=== PATIENT | male | born 1930 | race Caucasian/White ===

== ENCOUNTER 2019-03-31 13:16 | Inpatient (IN) | payer MEDICARE, OTHER ==
[~2019-03-31] VITALS: Ht 185.4 cm; Wt 89.8 kg
--- NOTE | 2019-03-31 13:33 | NUR ---
Jay polanco in [facility] - 03/31/19 at 1347 by [email or web address] BABBITT SPINNER IS AT THE BEDSIDE FOR BLOOD DRAW.
--- NOTE | 2019-03-31 13:40 | NUR ---
PT BIB PA WITH A C/O AGGRESSIVE BEHAVIOR AT FACILITY. PT JUST ARRIVED TO THE FACILITY FROM [place]. PT IS CALM AND COOPERATIVE. PT WAS CONNECTED TO THE MONITOR AND CONTINUOUS PULSE OX.
--- NOTE | 2019-03-31 13:43 | NUR ---
TAX INTERN IS AT THE BEDSIDE FOR BLOOD DRAW.
--- NOTE | 2019-03-31 13:45 | NUR ---
PT IS NOT ABLE TO GIVE A URINE SAMPLE RIGHT NOW. URINAL IS AT THE BEDSIDE AND SITTER IS AT THE BEDSIDE. PT REC'D A SODA ( PER PT'S REQUEST).
[2019-03-31 13:54] LABS: BASOPHILS % (AUTO) 0.4 % (0.0-2.0); EOSINOPHILS % (AUTO) 0.8 % (0.0-6.0); HEMATOCRIT 36 % (39-51); LYMPHOCYTES # (AUTO) 1.9 /CMM (0.8-4.8); LYMPHOCYTES % (AUTO) 23.4 % (20.0-44.0); MEAN CORPUSCULAR HGB CONC 33 g/dl (31.0-36.0); MEAN CORPUSCULAR VOLUME 89 fL (80-96); MONOCYTES # (AUTO) 0.6 /CMM (0.1-1.30); MONOCYTES % (AUTO) 7.4 % (2.0-12.0); NEUTROPHILS # (AUTO) 5.4 /CMM (1.8-8.9); PLATELET COUNT (AUTO) 347 /CMM (150-450); RED BLOOD CELL COUNT(AUTO) 4.09 MIL/uL (4.5-6.0)
[2019-03-31 14:00] LABS: CARBON DIOXIDE 28 mmol/L (21-32); CHLORIDE 103 mmol/L (98-107); CREATININE 1.1 mg/dL (0.6-1.3); GLUCOSE 97 mg/dL (74-106); POTASSIUM 3.9 mmol/L (3.5-5.1); SODIUM SERUM 138 mmol/L (136-145); UREA NITROGEN, BLOOD 29 mg/dL (7-18)
[2019-03-31 14:07] LABS: ALANINE AMINOTRANSFERASE 27 U/L (12-78); ALBUMIN 3.1 g/dL (3.4-5.0); ALCOHOL, BLOOD < 3 mg/dL (0-0); ALKALINE PHOSPHATASE 100 U/L (46-116); ASPARTATE AMINOTRANSFERASE 24 U/L (15-37); BILIRUBIN,DIRECT 0.1 mg/dL (0.0-0.2); BILIRUBIN,TOTAL 0.4 mg/dL (0.2-1.0); TOTAL PROTEIN, SERUM 7.1 g/dL (6.4-8.2)
[2019-03-31 14:10] LABS: ACETAMINOPHEN 0 ug/ml (10-30); SALICYLATE 1.4 mg/dL (2.8-20.0)
--- NOTE | 2019-03-31 14:22 | NUR ---
PT IS AT THE BEDSIDE TRYING TO GIVE A URINE SAMPLE
[2019-03-31] MEDS ORDERED: IV NS 0.9% 1,000 ML BAG IV ONE (14:30)
--- NOTE | 2019-03-31 14:38 | NUR ---
20G IV STARTED IN LT WRIST.
--- NOTE | 2019-03-31 14:41 | NUR ---
PT IS WATCHING TV AND APPEARS TO BE RESTING COMFORTABLY. SITTER IS AT THE BEDSIDE.
--- NOTE | 2019-03-31 15:20 | NUR ---
PT IS RESTING COMFORTABLY AND WATCHING TV.
--- NOTE | 2019-03-31 15:59 | NUR ---
PT IS BEING PLACED ON A 5150 HOLD BY NAVDEEP RUELAS LCSW.
--- NOTE | 2019-03-31 16:00 | NUR ---
NURSING SUP GAVE GPS BED 217-B
[2019-03-31 16:17] LABS: APPEARANCE,URINE Clear (CLEAR); BILIRUBIN,URINE Negative (NEGATIVE); BLOOD, URINE Small Ery/uL (NEGATIVE); COLOR,URINE Dark (YELLOW); KETONES,URINE Negative (NEGATIVE); LEUKOCYTE ESTERASE ,URINE Negative (NEGATIVE); NITRITE, URINE Negative (NEGATIVE); PH,URINE 5.5 (5.0-8.0); PROTEIN,URINE Negative (NEGATIVE); UGLUCOSE Negative (NEGATIVE); UROBILINOGEN,URINE 0.2 EU/dL (0.2)
[2019-03-31] MEDS ORDERED: OLANZAPINE 10 MG VIAL IM ONE (16:30)
[2019-03-31 16:34] LABS: BACTERIA,URINE Rare /HPF (None Seen); SQUAMOUS EPITHELIAL CELL,UR Few /HPF (None Seen); WBC,URINE NONE SEEN /HPF (0-3)
--- NOTE | 2019-03-31 16:42 | NUR ---
REPORT TO GREGG CARDONA
--- NOTE | 2019-03-31 16:54 | NUR ---
PT IS GOING TO [facility] VIA . PT'S WALKER IS GOING WITH THE PT.
[2019-03-31] MEDS ORDERED: clonazePAM 0.5 MG TABLET PO PRN (17:30)
[2019-03-31] MEDS ORDERED: MAG HYDROX/AL HYDROX/SIMETH 30 ML UDC PO PRN (17:30)
[2019-03-31] MEDS ORDERED: BLOOD SUGAR DIAGNOSTIC 1 EACH STRIP IN ONE (17:30)
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
--- NOTE | 2019-03-31 19:05 | NUR ---
RN NOTES : RECEVIED NEW ADMIT PATIENT FROM DAY SHIFT FOR COMPLETE THE ADMISSION, WILL CONTINUITY WITH CARE.
[2019-03-31 19:15] VITALS: BP 115/78
--- NOTE | 2019-03-31 19:30 | NUR ---
OPENING NOTED :RECEIVED PATIENT RESTING IN BED, EASILY AGITATED,AGGRESSIVE PARANOID , UNCOOPERTIVE HYPERVERBAL. REDIRECTABLE. NEEDS FREQUENT REDIRECTIONS.. NO ACUTE DISTRESS NOTED AT THIS TIME. ENVIRONMENTAL SAFETY CHECKS DONE,ENCOURAGED PT. TO VERBALIZED ANY CONCERN TO STAFF, REFUSED SKIN ASSESSMENT , ENCOURAGED X3 STILL REFUSED ,WILL CONTINUE TO MONITOR Q15 MINS. FOR SAFETY & BEHAVIOR.
[2019-03-31 20:54] VITALS: BP 112/71
--- NOTE | 2019-04-01 05:55 | NUR ---
RN NOTES: PT. REFUSED FULL BODY SKIN ASSESSMENT AND PICTURES TO BE TAKEN, ENCOURAGED X3 , RISKS AND BENEFITS EXPLINED, STILL REFUSED .
--- NOTE | 2019-04-01 06:25 | NUR ---
GPS RN CLOSING NOTE: PATIENT IN BED COMFORTABLY,AND CONFUSED ,DISHELVED ,UNCOOPERTIVE ,EASILY AGITAED, PARANOID ,DURING IN SHIFT , NEEDS FREQUENTLY REDIRECTIONS ,NO ACUTE DISTRESS NOTED. DENIES PAIN OR DISCOMFORT ,DENIES SI/HI/AVH AT THIS TIME. SAFETY PRECAUTIONS IMPLEMENTED.ALL NEEDS ATTENDED AND ANTICIPATED, ENCOURGED FOR VERBALIZED ANY FEELING ,BED ALARM ON AND IN LOCKED POSITION. WILL CONTINUE TO MONITOR FOR PT'S SAFETY.
[2019-04-01 08:00] VITALS: BP 128/90
[2019-04-01 08:02] LABS: ALBUMIN 2.9 g/dL (3.4-5.0); BILIRUBIN,TOTAL 0.6 mg/dL (0.2-1.0); CALCIUM, SERUM 8.7 mg/dL (8.5-10.1); CREATININE 0.9 mg/dL (0.6-1.3); POTASSIUM 3.8 mmol/L (3.5-5.1); TOTAL PROTEIN, SERUM 6.8 g/dL (6.4-8.2)
--- NOTE | 2019-04-01 09:18 | NUR ---
GPS RN OPENING NOTE: RECEIVED PATIENT AMBULATING HALLWAY WITH WALKER. PATIENT IS AOX3. DENIES SI/HI AND VAH. PATIENT IS AGITATED AND ANGRY AND REQUESTED TO SPEAK TO MEDICAL LAB DIRECTOR HE FEELS HE IS IMPRISONED. PATIENT WAS REASSURED THAT HE WILL SPEAK TO SW TODAY. SAFETY PRECAUTIONS REVIEWED AND IMPLEMENTED. ENVIRONMENTAL CHECKS DONE. PATIENT REFUSED TO CHANGE INTO HOSPITAL GOWN. WILL CONTINUE TO MONITOR PT Q15 FOR MOOD, SAFETY, AND BEHAVIOR.
--- NOTE | 2019-04-01 10:56 | NUR ---
FACILITY CONTACT: JACINTO Alcantar, telecommunications administrator at [facility] Address: [address], [place] [address] who states pt is verbally and psychically aggressive and is an elopement risk. She states pt needs a locked SNF placement as he has been refusing care and treatment.
--- NOTE | 2019-04-01 11:00 | NUR ---
RN-CO: We ( with the med reconer) faxed the authorization to release information to [facility] to obtain medical information and list of medications. Awaiting for the reply.
--- NOTE | 2019-04-01 11:04 | NUR ---
CLASSIFYING MACHINE OPERATOR/MED RECON CALLED AND SPOKE WITH ABDELRAHMAN FROM [facility], AND STATED NO MEDICAL RECORD/DOCUMENTATION RECEIVE FROM THE PATIENT SON. CALLED AND SPOKE WITH SON AND OBTAINED INFO/NAME OF THE LAST FACILITY ADMISSION. "STAT" MASON FAXED TO [facility], SPOKE WITH DEREK OH FROM MEDICAL RECORD. AWAITING FOR RECORDS. CN MADE AWARE.
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
[2019-04-01] MEDS ORDERED: CHOL200076 PO (12:10)
[2019-04-01] MEDS ORDERED: FOLI0.4T2 PO (12:10)
--- NOTE | 2019-04-01 13:45 | NUR ---
INITIAL DISCHARGE PLAN: Pt will will need locked SNF placement as [facility] Address: [address], [place] [address] will not be accepting pt back due to his aggressive and combative behavior. Pts son Siva [phone] agrees with discharge plan. SW will help form a safe and proper discharge in collaboration with .
[2019-04-01] MEDS: ATORVASTATIN 10 MG TABLET PO SCH (15:08)
[2019-04-01] MEDS: CHOLECALCIFEROL 1,000 UNIT TABLET (VIT D3) PO SCH (15:09)
--- NOTE | 2019-04-01 15:53 | NUR ---
Group Note: Pt was encouraged to attend group therapy on 04/01/19 at 2pm discussing the topic of concerns around discharge plan but the pt refused and appeared to become agitated and aggressive. SW attempted to discuss his discharge plan with him but the pt stated that he does not know where he is going to be discharged to and did not appear to be aware of his situation. SW deemed the pt inappropriate for group due to his aggression.
[2019-04-01 16:00] VITALS: BP 141/71
[2019-04-01] MEDS: QUETIAPINE FUMARATE 25 MG TABLET PO SCH (17:20)
[2019-04-01 20:08] VITALS: BP 133/65
[2019-04-02 08:00] VITALS: BP 150/69
[2019-04-02] MEDS: QUETIAPINE FUMARATE 25 MG TABLET PO SCH ×3 (08:59→16:22)
[2019-04-02] MEDS: FOLIC ACID 1 MG TABLET PO SCH (08:59)
[2019-04-02] MEDS: CHOLECALCIFEROL 1,000 UNIT TABLET (VIT D3) PO SCH (09:00)
--- NOTE | 2019-04-02 14:43 | NUR ---
GPS RN NOTE: PATIENT IN ROOM LYING IN BED RESTING PATIENT IS AOX2. DENIES SI/HI AND VAH. PATIENT IS CALM AND COMPLIANT WITH AM MEDS.PATIENT AMBULATORY WITH WALKER SAFETY PRECAUTIONS REVIEWED AND IMPLEMENTED. ENVIRONMENTAL CHECKS DONE. WILL CONTINUE TO MONITOR PT Q15 FOR MOOD, SAFETY AND BEHAVIOR.
--- NOTE | 2019-04-02 15:52 | NUR ---
GROUP THERAPY: SW encouraged pt to attend group therapy on this present day discussing "discharge planning." Pt refused to attend stating "I don't need to share with other people where I'll be going. I'd rather stay in my room." SW provided intervention and discussed tretament plan and participation in group milieu. Pt stated that he might participate tomorrow.
[2019-04-02 16:00] VITALS: BP 150/72
[2019-04-02 20:27] VITALS: BP 121/55
[2019-04-02] MEDS: ATORVASTATIN 10 MG TABLET PO SCH (21:18)
[2019-04-03] MEDS: ACETAMINOPHEN 325 MG TABLET PO PRN (07:20)
--- NOTE | 2019-04-03 07:21 | NUR ---
GPS/RN-NOTES PATIENT REQUESTING FOR TYLENOL,C/O LOWER BACK PAIN .TYLENOL 650MG P.O. GIVEN PRN ORDER.
--- NOTE | 2019-04-03 08:20 | NUR ---
GPS/RN-NOTES PATIENT IN THE DAY ROOM WATCHING TV.DENIES ANY DISCOMFORT AT THIS TIME.
[2019-04-03] MEDS: FOLIC ACID 1 MG TABLET PO SCH (08:50)
[2019-04-03] MEDS: CHOLECALCIFEROL 1,000 UNIT TABLET (VIT D3) PO SCH (08:51)
[2019-04-03] MEDS: QUETIAPINE FUMARATE 25 MG TABLET PO SCH ×3 (08:51→16:47)
--- NOTE | 2019-04-03 09:06 | NUR ---
GPS/RN-NOTES PATIENT STRONGLY REFUSED SEROQUEL P.O DESPITE EXPLANATIONS RISK AND BENEFITS.STATED" I DON'T KNOW THAT MEDICATION". OFFERED X3.
--- NOTE | 2019-04-03 13:42 | NUR ---
GPS/RN Notes Pt. refused Seroquel PO medication. Pt. stated " I don't know that pill." Explained risks and benefits, offered 3 times and still refused.
[2019-04-03] MEDS: MAGNESIUM HYDROXIDE 30 ML UDC PO PRN (13:54)
--- NOTE | 2019-04-03 13:54 | NUR ---
GPS/RN-NOTES PATIENT C/O CONSTIPATION AND REQUESTING FOR MEDICATIONS TO HELP. MOM 30ML GIVEN PRN ORDER. WILL CONT. MONITORING FOR EFFECTIVENESS.
--- NOTE | 2019-04-03 15:34 | NUR ---
Group Note: Pt was encouraged to attend group therapy on 04/03/19 at 2pm discussing the topic of social supports but the pt refused and appeared to become agitated and aggressive. SW deemed the pt inappropriate for group due to his aggression.
[2019-04-03 16:00] VITALS: BP 154/85
--- NOTE | 2019-04-03 16:52 | NUR ---
GPS/RN-NOTES PATIENT CONTINUE REFUSING SEROQUEL P.O DESPITE EXPLANATIONS RISK AND BENEFITS.OFFERED X3
--- NOTE | 2019-04-03 17:44 | NUR ---
GPS/RN-NOTES PATIENT VERY ANGRY ABOUT HIS 14 DAY HOLD. CHARGE NURSE DID EXPLAINED THE HOLD WITH THE PATIENT BUT PATIENT SCREAMING AND YELLING STATED" I DID NOT HURT ANYONE, I NEED TO GO OUT". AUTOMOTIVE SALES EXECUTIVE REDIRECTED PATIENT AND OFFERED KLONOPIN AND AGREED. KLONOPIN 0.25MG P.O GIVEN PRN ORDER. WILL CONT. MONITORING FOR SAFETY AND BEHAVIOR.
--- NOTE | 2019-04-03 18:30 | NUR ---
GPS/RN-NOTES PATIENT IN THE DAY ROOM WATCHING TV,CALM NO ACUTE DISTRESS NOTED.
--- NOTE | 2019-04-03 19:44 | NUR ---
GPS/RN-NOTES PATIENT STATED THE MOM DID NOT WORK YET , ENDORSE TO NIGHT NURSE TO CONTINUE MONITORING.
[2019-04-03 20:30] VITALS: BP 113/82
[2019-04-03] MEDS: ATORVASTATIN 10 MG TABLET PO SCH (21:44)
[2019-04-04 08:00] VITALS: BP 128/69
[2019-04-04] MEDS: QUETIAPINE FUMARATE 25 MG TABLET PO SCH ×3 (08:47→17:18)
[2019-04-04] MEDS: CHOLECALCIFEROL 1,000 UNIT TABLET (VIT D3) PO SCH (08:47)
[2019-04-04] MEDS: FOLIC ACID 1 MG TABLET PO SCH (08:47)
--- NOTE | 2019-04-04 09:25 | NUR ---
FAMILY CONTACT: SW received a call from pts son Siva [phone] who asked if he can bring pts belongings to the unit from [facility]. SW stated that he should hold on to them until pt is discharged. Son agreed and SW also informed him that there is no discharge date as of now.
--- NOTE | 2019-04-04 12:45 | NUR ---
FAMILY CONTACT: JACINTO met with pts son Siva [phone] on this present day. Son discussed placement options with SW. Son states that pt needs locked placement as he is unable to care for him. SW stated that she will send SNF referrals next week and son agreed.
[2019-04-04 16:00] VITALS: BP 110/66
--- NOTE | 2019-04-04 19:30 | NUR ---
GPS RN OPENING NOTES : PATIENT RESTING IN ROOM . NO S/S OF ANY DISTRESS NOTED. BREATHING EVEN AND UNLABORED. NO S/S OF SOB. PT IS CONFUSED, FORGETFUL, RESERVED, PARANOID , DISHELVED ,GUARDED, & EASILY AGITATED, DISORGANIZED, REQUIRES FREQUENT REDIRECTION, DENIES SI/HI AT THIS TIME. WILL CONTINUE TO MONITOR Q15 MINS FOR SAFETY AND BEHAVIOR. CONTINUE TO MONITOR.
[2019-04-04 20:00] VITALS: BP 130/78
[2019-04-04] MEDS: ATORVASTATIN 10 MG TABLET PO SCH (21:24)
[2019-04-05 08:00] VITALS: BP 150/87
[2019-04-05] MEDS: FOLIC ACID 1 MG TABLET PO SCH (08:52)
[2019-04-05] MEDS: QUETIAPINE FUMARATE 25 MG TABLET PO SCH ×3 (08:52→17:12)
[2019-04-05] MEDS: CHOLECALCIFEROL 1,000 UNIT TABLET (VIT D3) PO SCH (08:52)
[2019-04-05 16:00] VITALS: BP 142/80
[2019-04-05 20:15] VITALS: BP 141/101
[2019-04-05] MEDS: ATORVASTATIN 10 MG TABLET PO SCH (21:06)
[2019-04-05] MEDS: TEMAZEPAM 7.5 MG CAPSULE PO PRN (21:34)
--- NOTE | 2019-04-05 21:34 | NUR ---
GPS-RN NOTE: INSOMNIA PATIENT C/O UNABLE TO SLEEP. ADMINISTERED RESTORIL 7.5MG PO ORDERED. WILL CONTINUE TO MONITOR FOR PATIENT'S SAFETY.
[2019-04-06] MEDS: ACETAMINOPHEN 325 MG TABLET PO PRN ×2 (05:39→20:08)
--- NOTE | 2019-04-06 05:40 | NUR ---
GPS-RN NOTE: C/O LOWER BACK PAIN PATIENT C/O LOWER BACK PAIN PS OF 5/10. ADMINISTERED ACETAMINOPHEN PER PT'S REQUEST. NON PHARMACOLOGICAL INTERVENTION PROVIDED. WILL CONTINUE TO ASSESS THE EFFECTIVENESS OF THE MEDICATION.
[2019-04-06 08:00] VITALS: BP 148/93
[2019-04-06] MEDS: FOLIC ACID 1 MG TABLET PO SCH (08:11)
[2019-04-06] MEDS: CHOLECALCIFEROL 1,000 UNIT TABLET (VIT D3) PO SCH (08:12)
[2019-04-06] MEDS: QUETIAPINE FUMARATE 25 MG TABLET PO SCH ×3 (08:12→16:45)
--- NOTE | 2019-04-06 10:01 | NUR ---
GPS RN OPENING NOTE: RECEIVED PATIENT AMBULATING HALLWAY WITH WALKER. PATIENT IS AOX2. DENIES SI/HI AND VAH. COMPLIANT WITH MEDICATION ADMINISTRATION AND PLAN OF CARE. SAFETY PRECAUTIONS OBSERVED. ENVIRONMENTAL CHECKS DONE. PT IS DELUSIONAL AND BELIEVES HE IS IN [facility] AND IS ASKING FOR DISCHARGE COORDINATOR. WILL CONTINUE TO MONITOR PT Q15 FOR MOOD, SAFETY, AND BEHAVIOR.
[2019-04-06 16:00] VITALS: BP 135/72
--- NOTE | 2019-04-06 20:08 | NUR ---
GPS-RN NOTE: PATIENT C/O LOWER BACK PAIN ON A PAIN SCALE OF 5/10. ADMINISTERED ACETAMINOPHEN 650MG PO ORDERED PER PT'S REQUEST. WILL CONTINUE TO MONITOR FOR THE EFFECTIVENESS OF THE MEDICATION.
[2019-04-06 20:32] VITALS: BP 150/78
[2019-04-06] MEDS: TEMAZEPAM 7.5 MG CAPSULE PO PRN (21:50)
--- NOTE | 2019-04-06 21:50 | NUR ---
GPS-RN NOTE: INSOMNIA PATIENT C/O UNABLE TO SLEEP. ADMINISTERED RESTORIL 7.5MG PO ORDERED. WILL CONTINUE TO MONITOR FOR PATIENT'S SAFETY.
[2019-04-06 22:03] VITALS: BP 135/85
[2019-04-06] MEDS ORDERED: ATORVASTATIN 10 MG TABLET ONE (22:17)
[2019-04-06] MEDS: ATORVASTATIN 10 MG TABLET PO SCH (22:19)
[2019-04-07 08:00] VITALS: BP 162/90
--- NOTE | 2019-04-07 08:24 | NUR ---
PC HEARING NOTIFICATION: JACINTO contacted pts son Siva [phone] and left a voicemail informing him pt will be having a PC hearing and Medication Capacity Hearing on this present day at 1530.
[2019-04-07] MEDS: CHOLECALCIFEROL 1,000 UNIT TABLET (VIT D3) PO SCH (08:35)
[2019-04-07] MEDS: FOLIC ACID 1 MG TABLET PO SCH (08:35)
[2019-04-07] MEDS: QUETIAPINE FUMARATE 25 MG TABLET PO SCH ×3 (08:35→16:26)
--- NOTE | 2019-04-07 11:39 | NUR ---
SNF REFERRAL: SW faxed SNF referral to Heladio health services coordinator at [facility] Address: [address], [place] [address] for review.
--- NOTE | 2019-04-07 11:56 | NUR ---
SNF REFERRAL: SW received a call from [employer] high school coordinator at [facility] Address: [address], [place] [address] stating pt has been accepted to the facility.
[2019-04-07 16:00] VITALS: BP 151/81
--- NOTE | 2019-04-07 19:21 | NUR ---
GPS RN OPENING NOTES : PATIENT RESTING IN ROOM. NO S/S OF ANY DISTRESS NOTED. BREATHING EVEN AND UNLABORED. NO S/S OF SOB. PT IS CONFUSED, FORGETFUL, RESERVED, PARANOID , DISHEVELED ,GUARDED, & EASILY AGITATED, DISORGANIZED, REQUIRES FREQUENT REDIRECTION, REFUSES CARE AT TIMES. DENIES SI/HI AT THIS TIME. SAFETY MEASURES MAINTAINED. WILL CONTINUE TO MONITOR Q15 MINS FOR SAFETY AND BEHAVIOR.
[2019-04-07 20:19] VITALS: BP 141/73
[2019-04-07] MEDS: ACETAMINOPHEN 325 MG TABLET PO PRN (20:47)
--- NOTE | 2019-04-07 20:49 | NUR ---
PRN TYLENOL GIVEN PATIENT VERBALIZED C/O GENERALIZED BODY ACHE 04/14, REQUESTED TO TAKE PAIN MEDICINE. PRN TYLENOL 650 MG PO GIVEN. WILL CONTINUE TO MONITOR.
[2019-04-07] MEDS: ATORVASTATIN 10 MG TABLET PO SCH (21:29)
[2019-04-08 08:00] VITALS: BP 162/87
[2019-04-08] MEDS: FOLIC ACID 1 MG TABLET PO SCH (08:22)
[2019-04-08] MEDS: CHOLECALCIFEROL 1,000 UNIT TABLET (VIT D3) PO SCH (08:22)
[2019-04-08] MEDS: QUETIAPINE FUMARATE 25 MG TABLET PO SCH ×2 (08:22→16:24)
--- NOTE | 2019-04-08 10:47 | NUR ---
COLLATERAL CONTACT: JACINTO received a call from Cecille social research assistant at [employer] ([phone]) requesting discharge information as she is collaborating with pts son for adjunct faculty for medical terminology placement. JACINTO informed her that pt will be discharged on Sunday04/11/19 to [facility]. JACINTO also provided JACINTO with clinical information and medications.
--- NOTE | 2019-04-08 10:57 | NUR ---
FAMILY CONTACT: JACINTO contacted pts son Siva [phone] to inform him SW received a call from JACINTO Oden at [facility] and also to inform him that pt has been accepted to [facility] and will be discharged on Sunday04/11/19. Son agreed with discharge plan.
[2019-04-08] MEDS: LISINOPRIL (20MG) 20 MG TABLET PO SCH (12:26)
--- NOTE | 2019-04-08 15:32 | NUR ---
GROUP NOTE: SW encouraged pt to participate in group therapy on this present day discussing, "reality-testing." Pt not appropriate for group therapy as pt has Dementia and is only alert to herself. Pt is confused, disorganized, and disoriented. Pt was laying in bed and was asking to use the phone to call his son. SW informed pt that he will be discharged on Sunday04/12/19 to a SNF and pt was excited.
[2019-04-08 16:00] VITALS: BP 141/61
[2019-04-08 20:25] VITALS: BP 117/65
[2019-04-08] MEDS: ACETAMINOPHEN 325 MG TABLET PO PRN (20:29)
[2019-04-08] MEDS: ATORVASTATIN 10 MG TABLET PO SCH (21:10)
[2019-04-09 08:00] VITALS: BP 134/67
[2019-04-09] MEDS: QUETIAPINE FUMARATE 25 MG TABLET PO SCH ×2 (08:35→16:01)
[2019-04-09] MEDS: FOLIC ACID 1 MG TABLET PO SCH (08:36)
[2019-04-09] MEDS: LISINOPRIL (20MG) 20 MG TABLET PO SCH (08:36)
[2019-04-09] MEDS: CHOLECALCIFEROL 1,000 UNIT TABLET (VIT D3) PO SCH (08:36)
[2019-04-09] MEDS: MAGNESIUM HYDROXIDE 30 ML UDC PO PRN (09:32)
[2019-04-09 16:00] VITALS: BP 111/64
[2019-04-09 20:00] VITALS: BP 123/64
[2019-04-09] MEDS: TEMAZEPAM 7.5 MG CAPSULE PO PRN (20:59)
[2019-04-09] MEDS: ATORVASTATIN 10 MG TABLET PO SCH (21:00)
[2019-04-10 08:00] VITALS: BP 136/68
[2019-04-10] MEDS: QUETIAPINE FUMARATE 25 MG TABLET PO SCH ×2 (08:07→16:37)
[2019-04-10] MEDS: FOLIC ACID 1 MG TABLET PO SCH (08:07)
[2019-04-10] MEDS: CHOLECALCIFEROL 1,000 UNIT TABLET (VIT D3) PO SCH (08:08)
[2019-04-10] MEDS: LISINOPRIL (20MG) 20 MG TABLET PO SCH (08:08)
[2019-04-10 16:00] VITALS: BP 118/54
[2019-04-10 20:40] VITALS: BP 142/80
[2019-04-10] MEDS: ATORVASTATIN 10 MG TABLET PO SCH (21:17)
[2019-04-11] MEDS: CHOLECALCIFEROL 1,000 UNIT TABLET (VIT D3) PO SCH (08:34)
[2019-04-11] MEDS: FOLIC ACID 1 MG TABLET PO SCH (08:34)
[2019-04-11] MEDS: LISINOPRIL (20MG) 20 MG TABLET PO SCH (08:34)
[2019-04-11] MEDS: QUETIAPINE FUMARATE 25 MG TABLET PO SCH (08:34)
--- NOTE | 2019-04-11 09:00 | NUR ---
RN NOTE- PT AMBULATORY W WALKER. IN HALLS AND ROOM. INTERACTIVE, MILDLY CONFUSED. DENIES SI HI AH VH. DC TODAY. SHOWERED AND CLOTHING CHANGE COMPLETED. PO INTAKE GOOD. MED COMPLIANT
[2019-04-11 09:19] VITALS: BP 158/87
--- NOTE | 2019-04-11 09:26 | NUR ---
DISCHARGE NOTE: Pt will be discharging at 12:30pm via [facility] [address] [place] [address] P: [phone]. Pts son Siva [phone] has been notified and agrees with discharge plan. Pts mood is euthymic with congruent affect. Pt denied visual/auditory hallucinations and denied suicidal/homicidal ideation. Pt will be under the care of Psychiatrist: Dr. Hansen Address: [address] [place] [address] and Linoleum Printer: Dr Benjamin Address: [address] [address] . The multidisciplinary exit care form was done, printed, signed, and given to the patient.
--- NOTE | 2019-04-11 09:28 | NUR ---
RN-CO: Paged Dr Hansen to obtain discharge order for his patient.Awaiting to call back.
--- NOTE | 2019-04-11 09:35 | NUR ---
RN-CO: DR SOLER CALLED BACK WITH ORDERS TO DISCONTINUE HOLD AND DISCHARGE PATIENT TO SNF, NOTED.
--- NOTE | 2019-04-11 12:45 | NUR ---
SLIDE FORMING MACHINE TENDER NOTE- PT DC TO [facility] AT THIS TIME VIA AMBULANCE. PT ALERT ORIENTED TO PERSON PLACE. CONFUSED. DENIES SI HI AH VH AT TIME OF DC. VALUABLES RETURNED TO PT AND SIGNED FOR. ID [id number] REMOVED. VS - BP-158/87. HR- 76, RR-19, T-98.0, SATURATION 99% RA. AFTERCARE AND ORDERS REVIEWED W AMBULANCE CREW AND PATIENT. ESCORTED OFF OF UNIT. SON XAVIER NOTIFIED OF TRANSFER AND REPORT CALLED TO ABRAHAM AT [facility].
== END 2019-04-11 12:45 | DRG 885 ==
LOC: ER 13:24 → GPS 16:56
PROVIDERS: ADMIT Psychiatry & Neurology Psychiatry; ATTEND Internal Medicine
DX: F29 Unspecified psychosis not due to a substance or known physiological condition (principal); I11.0 Hypertensive heart disease with heart failure; F03.91 Unspecified dementia, unspecified severity, with behavioral disturbance; I50.32 Chronic diastolic (congestive) heart failure; F41.9 Anxiety disorder, unspecified; E78.5 Hyperlipidemia, unspecified; D63.8 Anemia in other chronic diseases classified elsewhere; J44.9 Chronic obstructive pulmonary disease, unspecified
CPT/HCPCS: 36415; 73660-TC; 80048-TC; 80053-TC; 80061-TC; 80076-TC; 80305; 81000-TC; 82962-TC; 85025-TC; 87081-TC; G0480; J7030

== ENCOUNTER 2019-11-07 21:28 | Inpatient (IN) | payer MEDICARE, OTHER ==
[~2019-11-07] VITALS: Ht 185.4 cm; Wt 79.4 kg
[~2019-11-07 21:28] MED LIST: CHOL200076 PO; FOLI0.4T2 PO
--- NOTE | 2019-11-07 22:03 | NUR ---
GPS ADMISSION NOTE: ADMITTED THIS 88 Y/O MALE PATIENT. ADMIT FROM [facility] ER ORIGINALLY FROM [facility]. ADMITTED TO GPS 5150 HOLD , DTO AND GD , PER HOLD , PT. HAD INCREASED AGITATION AND AGGRESSIVE BEHAVIOR TOWARDS STAFF. UPON FACE TO FACE ASSESSMENT PATIENT IS A&O 1-2 , DISHEVELED, AGITATED, LOUD, CONFUSED, DISORIENTED. PT. UNABLE TO SIGN ADMISSION CONSENT PAPERS. BOTH MD AWARE AND NOTIFIED OF THE ADMISSION, BELONGINGS CONTRABAND WERE DONE ,PT. RIGHTS DISCUSS , PROVIDE THE PT. WITH HANDBOOK, AND MEDICATIONS GUIDE, ENVIRONMENTAL SAFETY CHECK DONE, ENCOURAGED PT. VERBALIZED ANY FEELINGS OR CONCERNS TO STAFF, ORIENT TO UNIT POLICY, NO ACUTE DISTRESS NOTED,VITAL SIGNS WNL ,DENIES ANY PAIN AT THIS TIME,WILL CONTINUE TO MONITOR FOR Q15 SAFETY AND BEHAVIOR.
[2019-11-07] MEDS ORDERED: LORAZEPAM 0.5 MG TABLET PO PRN (23:00)
[2019-11-07] MEDS ORDERED: MAG HYDROX/AL HYDROX/SIMETH 30 ML UDC PO PRN (23:00)
[2019-11-07] MEDS ORDERED: MAGNESIUM HYDROXIDE 30 ML UDC PO PRN (23:00)
[2019-11-07] MEDS ORDERED: BLOOD SUGAR DIAGNOSTIC 1 EACH STRIP IN ONE (23:00)
[2019-11-07] MEDS ORDERED: QUET25TA PO (23:06)
[2019-11-07] MEDS ORDERED: ATOR20TA PO (23:07)
[2019-11-07] MEDS ORDERED: GUAI-1189 PO (23:10)
[2019-11-07] MEDS ORDERED: DEXT15DR6 EACHEYE (23:12)
[2019-11-07] MEDS ORDERED: HYDR-500 PO (23:15)
[2019-11-07] MEDS ORDERED: CLOT15CR5 TP (23:21)
[2019-11-07] MEDS ORDERED: CLOT15CR27 TP (23:25)
[2019-11-07] MEDS ORDERED: CEPH-570 PO (23:31)
[2019-11-07] MEDS: TEMAZEPAM 7.5 MG CAPSULE PO PRN (23:48)
--- NOTE | 2019-11-07 23:52 | NUR ---
GPS RN NOTE: INSOMNIA PT. UNABLE TO SLEEP. ADMINISTERED RESTORIL 7.5 MG PO PRN ORDERED. WILL CONTINUE TO MONITOR FOR SAFETY AND BEHAVIOR.
[2019-11-08 00:33] VITALS: BP 148/74
[2019-11-08] MEDS ORDERED: GUAIFENESIN/D-METHORPHAN HB 5 ML UDC PO PRN (01:30)
[2019-11-08] MEDS ORDERED: POLYVINYL ALCOHOL 15 ML BOTTLE OP PRN (01:30)
[2019-11-08 06:44] LABS: BASOPHILS # (AUTO) 0.1 /CMM (0.0-0.2); BASOPHILS % (AUTO) 0.6 % (0.0-2.0); EOSINOPHILS % (AUTO) 12.9 % (0.0-6.0); HEMATOCRIT 31 % (39-51); HEMOGLOBIN 10.6 g/dL (13.5-17.5); LYMPHOCYTES # (AUTO) 1.7 /CMM (0.8-4.8); LYMPHOCYTES % (AUTO) 19.2 % (20.0-44.0); MEAN CORPUSCULAR HGB CONC 34 g/dl (31.0-36.0); MEAN CORPUSCULAR VOLUME 87 fL (80-96); MONOCYTES # (AUTO) 0.8 /CMM (0.1-1.30); MONOCYTES % (AUTO) 9.3 % (2.0-12.0); NEUTROPHILS # (AUTO) 5.1 /CMM (1.8-8.9); PLATELET COUNT (AUTO) 277 /CMM (150-450); WHITE BLOOD COUNT (AUTO) 8.7 K/uL (4.3-11.0)
[2019-11-08 07:09] LABS: CALCIUM, SERUM 8.6 mg/dL (8.5-10.1); POTASSIUM 3.7 mmol/L (3.5-5.1)
[2019-11-08] MEDS: CHOLECALCIFEROL 1,000 UNIT TABLET (VIT D3) PO SCH (08:39)
[2019-11-08] MEDS: CEPHALEXIN MONOHYDRATE 500 MG CAPSULE PO SCH ×4 (08:39→17:50)
[2019-11-08] MEDS: FOLIC ACID 1 MG TABLET PO SCH (08:39)
--- NOTE | 2019-11-08 08:39 | NUR ---
GIVEN ATIVAN FOR AGITATION.
[2019-11-08] MEDS: ACETAMINOPHEN 325 MG TABLET PO PRN (08:42)
[2019-11-08] MEDS ORDERED: CLOTRIMAZOLE/BETAMETASONE DIPROPIONATE 15 GM TUBE TP SCH (09:00)
[2019-11-08] MEDS ORDERED: PERMETHRIN 5% CRM 60 GM TUBE TP ONE (09:00)
[2019-11-08] MEDS ORDERED: CLOTRIMAZOLE 1% CREAM 24 GM TUBE TP SCH (09:00)
[2019-11-08] MEDS ORDERED: QUETIAPINE FUMARATE 25 MG TABLET PO SCH (09:00)
--- NOTE | 2019-11-08 09:00 | NUR ---
DR. DEL RIO IN AND GIVEN ORDERS.PT. AT THIS TIME REFUSING ELIMITE.
[2019-11-08] MEDS: LORAZEPAM 0.5 MG TABLET PO PRN (13:56)
--- NOTE | 2019-11-08 14:09 | NUR ---
GIVEN ATIVAN FOR AGITATION,DOSE INCREASED BY DR. LUNA.
[2019-11-08] MEDS ORDERED: OLANZAPINE 10 MG VIAL IM STA (14:37)
--- NOTE | 2019-11-08 14:50 | NUR ---
RN NOTE: EMERGENCY IM PT EXHIBITING INCREASED AGITATION, AGGRESSION AND ERRATIC BEHAVIOR. PT HITTING GLASS WINDOWS AT NURSES STATION. YELLING AND THREATENING STAFF. REMOVING CLOTHING. LAUGHING UNCONTROLLABLY. UNABLE TO BE REDIRECTED. DR. LUNA INFORMED. ORDER FOR ZYPREXA 5MG IM STAT. IM ADMINISTERED TO LEFT GLUTEUS WITHOUT COMPLICATION. WILL CONT TO MONITOR Q15MIN AND PRN FOR SAFETY AND BEHAVIOR.
--- NOTE | 2019-11-08 16:08 | NUR ---
RN NOTE: PT AWAKE AFTER IM ADMINISTRATION. NO RESPIRATORY DISTRESS NOTED.
--- NOTE | 2019-11-08 16:31 | NUR ---
PT. DOZING IN BED SKIN WARM AND DRY,VS STABLE.SIDE RAILS UP.AROUSABLE.
[2019-11-08] MEDS: OLANZAPINE 2.5 MG TABLET PO SCH ×2 (17:00→17:49)
--- NOTE | 2019-11-08 17:00 | NUR ---
REFUSING ELIMITE AT THIS TIME.
--- NOTE | 2019-11-08 18:01 | NUR ---
TOO DROWSY,JUNE. MEDS HELD.
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
--- NOTE | 2019-11-08 18:15 | NUR ---
COUGHING WITH DINNER,ALREADY ON MECH.SOFT DIET.PT PUTS TOO MUCH FOOD IN MOUTH AT ONE TIME.
[2019-11-08 20:13] VITALS: BP 144/83
[2019-11-08] MEDS: ATORVASTATIN 10 MG TABLET PO SCH (21:57)
[2019-11-08] MEDS: DIVALPROEX SODIUM 125 MG CAP.SPRINK PO SCH (21:57)
[2019-11-08] MEDS: TEMAZEPAM 7.5 MG CAPSULE PO PRN (22:32)
[2019-11-09 03:23] LABS: APPEARANCE,URINE CLEAR (CLEAR); BILIRUBIN,URINE NEGATIVE (NEGATIVE); BLOOD, URINE SMALL Ery/uL (NEGATIVE); COLOR,URINE YELLOW (YELLOW); KETONES,URINE NEGATIVE (NEGATIVE); LEUKOCYTE ESTERASE ,URINE NEGATIVE (NEGATIVE); NITRITE, URINE NEGATIVE (NEGATIVE); PROTEIN,URINE NEGATIVE (NEGATIVE); UGLUCOSE NEGATIVE (NEGATIVE); UROBILINOGEN,URINE 0.2 EU/dL (0.2)
--- NOTE | 2019-11-09 06:22 | NUR ---
GPS RN CLOSING NOTES: PT WAS MED COMPLIANT THIS SHIFT. ELIMITE CREAM APPLIED ALL OVER BODY DIRECTED. HAD RESTORIL 7.5MG 1 TAB PO PRN ORDERED FOR SLEEP. PT WOKE UP INTERMITTENTLY TO VOID USING URINAL. SLEPT FOR 7 HR THIS SHIFT. NO S/S OF DISTRESS. RESPIRATION EVEN AND UNLABORED WITH EQUAL RISE AND FALL OF THE SHIFT. PT IS CURRENTLY SLEEPING. WILL CONTINUE TO MONITOR AND ENDORSE TO AM SHIFT.
[2019-11-09 08:00] VITALS: BP 131/77
[2019-11-09] MEDS: FOLIC ACID 1 MG TABLET PO SCH ×2 (08:26→09:00)
[2019-11-09] MEDS: DIVALPROEX SODIUM 125 MG CAP.SPRINK PO SCH ×3 (08:26→21:38)
[2019-11-09] MEDS: CHOLECALCIFEROL 1,000 UNIT TABLET (VIT D3) PO SCH ×2 (08:26→09:00)
[2019-11-09] MEDS: CEPHALEXIN MONOHYDRATE 500 MG CAPSULE PO SCH ×4 (08:26→16:14)
[2019-11-09] MEDS: OLANZAPINE 2.5 MG TABLET PO SCH ×3 (08:28→16:14)
[2019-11-09] MEDS: CLOTRIMAZOLE/BETAMETASONE DIPROPIONATE 15 GM TUBE TP SCH (09:00)
[2019-11-09] MEDS: CLOTRIMAZOLE 1% 15 GM TUBE TP SCH ×2 (09:00→09:09)
[2019-11-09] MEDS: LORAZEPAM 0.5 MG TABLET PO PRN ×2 (11:30→16:14)
--- NOTE | 2019-11-09 11:45 | NUR ---
RN-CO: PATIENT REFUSED ALL AM MEDICATIONS.
--- NOTE | 2019-11-09 11:50 | NUR ---
RN-CO: PATIENT REFUSED ATIVAN , PATIENT WAS AGITATED AND SCREAMING AT THE STAFF.
--- NOTE | 2019-11-09 13:33 | NUR ---
RN-CO: PATIENT REFUSED TO TAKE A SHOWER, WHEN STAFF APPROACH HIM HE BECOMES AGITATED AND POSTURING. HE IS VERY COMBATIVE IF APPROACH FOR CARE. HE WAS SEEN BY DR LUNA.
[2019-11-09 16:00] VITALS: BP 134/74
--- NOTE | 2019-11-09 16:15 | NUR ---
RN-CO: PATIENT SHOWERED AT 1500, ATE SANDWICH, PUDDING, MILK AND JUICES. DEMANDING AND RESTLESS.
--- NOTE | 2019-11-09 16:16 | NUR ---
RN-CO: PATIENT IS RESTLESS, VERY DEMANDING HE REFUSED HIS PM MEDICATIONS INCLUDING ATIVAN 1 MG. HE IS VERY PARANOID.
--- NOTE | 2019-11-09 16:50 | NUR ---
RN-CO: PATIENT IS BANGING HIS CHAIR, SCREAMING, CURSING STAFF, REFUSED THE ATIVAN 1 MG PO. COMBATIVE TO STAFF. NOTIFIED DR LUNA AND SHE ORDERED ZYPREXA 5MG IM STAT, NOTED AND CARRIED OUT. WE WILL CONTINUE TO MONITOR Q 15 MIN FOR SAFETY OF THE PATIENT AND THE STAFF.
[2019-11-09] MEDS ORDERED: OLANZAPINE 10 MG VIAL IM STA (16:53)
[2019-11-09 20:42] VITALS: BP 114/57
[2019-11-09] MEDS: ATORVASTATIN 10 MG TABLET PO SCH (21:39)
[2019-11-09] MEDS: TEMAZEPAM 7.5 MG CAPSULE PO PRN (22:54)
--- NOTE | 2019-11-10 06:43 | NUR ---
GPS RN CLOSING NOTES: PT CONDITION REMAINS THE SAME THIS SHIFT. DISORGANIZED, DISORIENTED, CONFUSED, RESTLESS, MED COMPLIANT. HAD RESTORIL 7.5MG 1 TAB PO PRN ORDERED FOR SLEEP AT 2254 AND SLEPT FOR 6HR. WEEKLY SKIN ASSESSMENT DONE AND PICTURES TAKEN AND PLACED IN PT CHART. NO S/S OF DISTRESS AT THIS TIME. RESPIRATION EVEN AND UNLABORED WITH EQUAL RISE AND FALL OF THE CHEST ON ROOM AIR. ALL PATIENT CARE NEEDS WERE MET ANTICIPATED. WILL CONTINUE TO MONITOR AND ENDORSE TO AM SHIFT.
[2019-11-10 08:00] VITALS: BP 127/57
[2019-11-10] MEDS: OLANZAPINE 2.5 MG TABLET PO SCH ×2 (08:00→16:39)
[2019-11-10] MEDS: FOLIC ACID 1 MG TABLET PO SCH (08:00)
[2019-11-10] MEDS: CEPHALEXIN MONOHYDRATE 500 MG CAPSULE PO SCH ×3 (08:00→16:39)
[2019-11-10] MEDS: CHOLECALCIFEROL 1,000 UNIT TABLET (VIT D3) PO SCH (08:01)
[2019-11-10] MEDS: DIVALPROEX SODIUM 125 MG CAP.SPRINK PO SCH ×2 (08:01→21:31)
[2019-11-10] MEDS: CLOTRIMAZOLE 1% 15 GM TUBE TP SCH (08:05)
[2019-11-10] MEDS: CLOTRIMAZOLE/BETAMETASONE DIPROPIONATE 15 GM TUBE TP SCH (08:05)
--- NOTE | 2019-11-10 08:52 | NUR ---
RN NOTE- SPOKE W ALYSIA SHETTY ABOUT SKIN SCRAPE AND ELIMITE SECOND DOSE. STATED NOT NOW. MAYBE IN WEEK IF STILL SX. OR IVERMECTIM PO.
--- NOTE | 2019-11-10 09:00 | NUR ---
RN NOTE- PT DISORGANIZED AGITATED TRYING TO GET UP AND WALK WITHOUT ASSISTANCE, UNMANAGEABLE NOT DIRECTABLE. PO INTAKE FAIR, MED COMPLIANT
[2019-11-10] MEDS: LORAZEPAM 0.5 MG TABLET PO PRN (09:10)
--- NOTE | 2019-11-10 09:10 | NUR ---
RN NOTE- PT RESTLESS IRRITABLE TRYING TO GET OUT OF CHAIR AND UNMANAGEABLE. ATIVAN 1 MG GIVEN
--- NOTE | 2019-11-10 11:20 | NUR ---
SW Initial Discharge Plan: Patient currently resides at [facility] [address] [place] [address]; ([phone]). Patient's son Siva ([phone]) would want pt to return back. This technical writer and editor spoke with Jamia Bradshaw ([phone]) who stated that pt can return back upon discharge. laundromat worker will work with the MD, Treatment team, and family to help coordinate proper discharge.
--- NOTE | 2019-11-10 11:22 | NUR ---
SW Family Contact: This marketing copywriter spoke with Patient's son Siva ([phone]) and discussed treatment plan and discharge plan. Per son, he would want pt to return back to [facility].
--- NOTE | 2019-11-10 12:30 | NUR ---
RN NOTE- INCREASING AGITATION DIFFICULT REDIRECTION ATTEMPTING TO GET UP AND IRRITABLE YELLING. DR SOLER CALLED . ZYPREXA ZYDIS 5 MG X ONE DOSE ORDERED.
[2019-11-10] MEDS ORDERED: OLANZAPINE 5 MG/TAB.RAPDIS PO STA (12:52)
[2019-11-10 16:00] VITALS: BP 139/51
[2019-11-10 19:49] VITALS: BP 115/47
[2019-11-10] MEDS: ATORVASTATIN 10 MG TABLET PO SCH (21:31)
[2019-11-10] MEDS: TEMAZEPAM 7.5 MG CAPSULE PO PRN (22:27)
--- NOTE | 2019-11-10 22:45 | NUR ---
GPS RN NOTE: INSOMNIA ADMIN RESTORIL @ 8299, PER PT REQUEST TO HELP HIM SLEEP AT NIGHT, WILL CONTINUE TO MONITOR Q15MIN FOR SAFETY AND BEHAVIOR
[2019-11-11] MEDS: LORAZEPAM 0.5 MG TABLET PO PRN (00:57)
--- NOTE | 2019-11-11 01:02 | NUR ---
GPS RN NOTE: ANXIETY PT WAS RESTLESS, IRRITABLE, OFFERED ATIVAN PT ACCEPTED, TOOK THE MEDICATION, TOLERATED WELL. ADMIN ATIVAN PRN @ 0057. WILL CONTINUE TO MONITOR Q15MIN FOR SAFETY AND BEHAVIOR.
[2019-11-11 08:00] VITALS: BP 137/78
[2019-11-11] MEDS: DIVALPROEX SODIUM 125 MG CAP.SPRINK PO SCH ×2 (08:23→21:24)
[2019-11-11] MEDS: OLANZAPINE 2.5 MG TABLET PO SCH ×3 (08:23→21:23)
[2019-11-11] MEDS: CEPHALEXIN MONOHYDRATE 500 MG CAPSULE PO SCH ×3 (08:23→17:14)
[2019-11-11] MEDS: CHOLECALCIFEROL 1,000 UNIT TABLET (VIT D3) PO SCH (08:23)
[2019-11-11] MEDS: FOLIC ACID 1 MG TABLET PO SCH (08:25)
[2019-11-11] MEDS: CLOTRIMAZOLE 1% 15 GM TUBE TP SCH (08:37)
[2019-11-11] MEDS: CLOTRIMAZOLE/BETAMETASONE DIPROPIONATE 15 GM TUBE TP SCH (08:38)
--- NOTE | 2019-11-11 09:00 | NUR ---
RN NOTE- PT A BIT LESS AGITATED THIS MORNING DIDNT SLEEP LAST NOC SHIFT, PO INTAKE FAIR, MED COMPLIANT CONFUSED DISORGANIZED SKIN CARE COMPLETED TO BILATERAL FEET .TOLERATED WELL
--- NOTE | 2019-11-11 10:56 | NUR ---
WOUND CARE CONSULT: LIMITED ASSESSMENT DUE TO PT AGITATED AND COMBATIVE. PT NOTED TO HAVE SKIN CONDITION WITH GENERALIZED RASH. PT WAS TREATED WITH PERMETHRIN PER RN. WILL SEE PRN. CURRENT MICKY SCORE IS 15. RECOMMENDATIONS MADE FOR SKIN PROTECTION. DISCUSSED WITH NURSING STAFF. MD IN AGREEMENT WITH PLAN OF CARE.
[2019-11-11] MEDS: Z GUARD REMEDY 2 OZ OINT TP SCH (11:07)
[2019-11-11] MEDS ORDERED: OLANZAPINE 10 MG VIAL IM STA (12:25)
--- NOTE | 2019-11-11 12:25 | NUR ---
RN NOTE- PT W AGITATION AND AGGRESSIVENESS. ATIVAN OFFERED. PT REFUSED PO MEDS AND THREW TABLE IN DAY ROOM. DR SOLER CALLED . ORDERED ZYPREXA 2.5 MG TO BE INCREASED FROM BID TO QID. ALSO ORDERED ZYPREXA 5 MG IM X ONE DOSE NOW. COMPLIED
--- NOTE | 2019-11-11 13:05 | NUR ---
RN NOTE- PT IN BED RESTING QUIETLY. PULSE - 66, RR- 16
--- NOTE | 2019-11-11 13:53 | NUR ---
RN NOTE- PT QUIET, EASILY AWAKENED, PULSE 66, RR- 16.
[2019-11-11 16:00] VITALS: BP 140/101
[2019-11-11 19:42] VITALS: BP 115/61
[2019-11-11] MEDS: ATORVASTATIN 10 MG TABLET PO SCH (21:24)
[2019-11-12 08:00] VITALS: BP 152/78
[2019-11-12] MEDS: CLOTRIMAZOLE/BETAMETASONE DIPROPIONATE 15 GM TUBE TP SCH (09:00)
[2019-11-12] MEDS: CEPHALEXIN MONOHYDRATE 500 MG CAPSULE PO SCH ×3 (09:05→16:36)
[2019-11-12] MEDS: OLANZAPINE 2.5 MG TABLET PO SCH ×4 (09:05→20:53)
[2019-11-12] MEDS: DIVALPROEX SODIUM 125 MG CAP.SPRINK PO SCH ×2 (09:05→20:53)
[2019-11-12] MEDS: FOLIC ACID 1 MG TABLET PO SCH (09:05)
[2019-11-12] MEDS: CLOTRIMAZOLE 1% 15 GM TUBE TP SCH (09:06)
[2019-11-12] MEDS: CHOLECALCIFEROL 1,000 UNIT TABLET (VIT D3) PO SCH (09:06)
[2019-11-12] MEDS: Z GUARD REMEDY 2 OZ OINT TP SCH (09:07)
[2019-11-12] MEDS: LORAZEPAM 0.5 MG TABLET PO PRN ×2 (12:14→23:02)
[2019-11-12 16:00] VITALS: BP 119/66
[2019-11-12 20:35] VITALS: BP 147/92
[2019-11-12] MEDS: ATORVASTATIN 10 MG TABLET PO SCH (21:54)
[2019-11-12 22:00] VITALS: BP 132/82
--- NOTE | 2019-11-12 23:04 | NUR ---
RN NOTES: ANXIETY PT. IS RESTLESS, ANXIOUS SCREAMING YELLING IRRITABLE, PARANOID , NON DIRECTABLE ,OFFERED ATIVAN PT. ACCEPTED ATIVAN 1 MG PO PRN GIVEN. WILL CONTINUE TO MONITOR Q15MIN FOR SAFETY AND BEHAVIOR.
[2019-11-12] MEDS: Z GUARD REMEDY 2 OZ OINT TP PRN (23:11)
--- NOTE | 2019-11-13 01:00 | NUR ---
RN NOTE OFFERED RESTORIL SLEEPING MEDICATIONS , PT. REFUSED TO TAKE, PT. BEHAVIOR UNCOOPERATIVE, WILL CONTINUITY WITH CARE .
--- NOTE | 2019-11-13 06:31 | NUR ---
GPS RN NOTES: PT. RESTING IN HIS ROOM, CALM NOTED AT THIS TIME . NO S/S OF DISTRESS NOTED ,NO CHANGE OF CONDITION NOTED , ALL CARE NEEDS MET ANTICIPATED. WILL CONTINUE TO MONITOR FOR SAFETY BEHAVIOR, AND ENDORSE TO AM SHIFT FOR CONTINUITY OF CARE.
[2019-11-13] MEDS: Z GUARD REMEDY 2 OZ OINT TP PRN (06:54)
[2019-11-13 08:00] VITALS: BP 154/82
[2019-11-13] MEDS: CEPHALEXIN MONOHYDRATE 500 MG CAPSULE PO SCH ×3 (08:54→17:02)
[2019-11-13] MEDS: OLANZAPINE 2.5 MG TABLET PO SCH ×4 (08:54→21:15)
[2019-11-13] MEDS: CHOLECALCIFEROL 1,000 UNIT TABLET (VIT D3) PO SCH (08:54)
[2019-11-13] MEDS: Z GUARD REMEDY 2 OZ OINT TP SCH (08:54)
[2019-11-13] MEDS: DIVALPROEX SODIUM 125 MG CAP.SPRINK PO SCH ×2 (08:54→20:55)
[2019-11-13] MEDS: FOLIC ACID 1 MG TABLET PO SCH (08:54)
[2019-11-13] MEDS: CLOTRIMAZOLE 1% 15 GM TUBE TP SCH (09:02)
--- NOTE | 2019-11-13 10:03 | NUR ---
SW Note: This rewriter received a phone call from pt's SW from [employer] ([phone]) and this rewriter contacted back but was unavailable.
[2019-11-13 16:00] VITALS: BP 136/90
[2019-11-13] MEDS: LORAZEPAM 0.5 MG TABLET PO PRN (18:00)
--- NOTE | 2019-11-13 18:08 | NUR ---
GPS/RN-NOTES NOTED PATIENT WITH AGITATION BANGING HIS HERB-CHAIR TABLE SCREAMING AND YELLING AT THE STAFF. REDIRECTED AND OFFERED ATIVAN 1MG P.O PRN ORDER. WILL CONT. MONITORING FOR SAFETY AND BEHAVIOR.
--- NOTE | 2019-11-13 18:45 | NUR ---
GPS/RN-NOTES PATIENT SITTING IN THE CHAIR IN THE ROOM CALM AT THIS TIME.NO ACUTE DISTRESS NOTED. ENDORSED TO NIGHT NURSE FOR CONT. MONITORING FOR SAFETY ,BEHAVIOR AND CONTINUITY OF CARE.
[2019-11-13 19:48] VITALS: BP 135/71
[2019-11-13 19:52] VITALS: BP 135/71
[2019-11-13] MEDS: ATORVASTATIN 10 MG TABLET PO SCH (21:31)
--- NOTE | 2019-11-13 22:30 | NUR ---
GPS RN NOTE PATIENT IS AWAKE & SITTING IN HERB CHAIR, ATTEMPTS TO CLIMB OUT OF HIS BED, HIGH FALL RISK DUE TO VERY UNSTEADY GAIT, PATIENT IS UNCOOPERATIVE, EASILY AGITATED, REFUSES CARE AT TIMES, CONFUSED, HYPERVERBAL, ANXIOUS, RESTLESS, NEEDS FREQUENT REDIRECTIONS, ON CLOSE SUPERVISION FOR SAFETY. WILL CONTINUE TO MONITOR.
[2019-11-13] MEDS: TEMAZEPAM 7.5 MG CAPSULE PO PRN (23:04)
--- NOTE | 2019-11-13 23:05 | NUR ---
GPS RN NOTE: INSOMNIA PATIENT IS UNABLE TO SLEEP, RESTLESS AT TIMES. PRN RESTORIL 7.5 MG 1 CAP PO GIVEN ORDERED. WILL CONTINUE TO MONITOR FOR ANY CHANGES.
[2019-11-14] MEDS: Z GUARD REMEDY 2 OZ OINT TP PRN (03:08)
--- NOTE | 2019-11-14 05:19 | NUR ---
GPS RN NOTE PATIENT NOTED WITH SACRAL REDNESS, UNABLE TO COMPLETE SACRAL ASSESSMENT & TO TAKE THE PICTURE DUE TO PATIENT'S UNCOOPERATIVE BEHAVIOR, EASILY AGITATED, HYPERVERBAL, ANXIOUS, RESTLESS, REFUSED TO BE ON HIS SIDE LONG ENOUGH FOR SKIN ASSESSMENT. CLEANED SACRAL AREA MUCH POSSIBLE, Z GUARD APPLIED. NOTIFIED WITH NEW ORDER FOR WOUND CARE CONSULT. PATIENT IS ABLE TO TURN & REPOSITION IN BED INDEPENDENTLY. WILL CONTINUE TO MONITOR.
[2019-11-14 08:00] VITALS: BP 140/70
[2019-11-14] MEDS: FOLIC ACID 1 MG TABLET PO SCH (08:03)
[2019-11-14] MEDS: Z GUARD REMEDY 2 OZ OINT TP SCH (08:03)
[2019-11-14] MEDS: OLANZAPINE 2.5 MG TABLET PO SCH ×4 (08:03→21:47)
[2019-11-14] MEDS: CEPHALEXIN MONOHYDRATE 500 MG CAPSULE PO SCH ×3 (08:03→16:59)
[2019-11-14] MEDS: CHOLECALCIFEROL 1,000 UNIT TABLET (VIT D3) PO SCH (08:03)
[2019-11-14] MEDS: DIVALPROEX SODIUM 125 MG CAP.SPRINK PO SCH ×2 (08:03→21:47)
[2019-11-14] MEDS: CLOTRIMAZOLE 1% 15 GM TUBE TP SCH (09:38)
--- NOTE | 2019-11-14 09:58 | NUR ---
WOUND CARE CONSULT: RECEIVED CONSULT FOR REDNESS TO SACRAL/BUTTOCKS AREA. UNABLE TO DO SKIN ASSESSMENT DUE TO PT AGITATED AND COMBATIVE. RECOMMENDATIONS MADE FOR SKIN PROTECTION. DISCUSSED WITH NURSING STAFF. WILL SEE PRN. KRAMER IN AGREEMENT WITH PLAN OF CARE.
[2019-11-14] MEDS: LORAZEPAM 0.5 MG TABLET PO PRN (10:36)
--- NOTE | 2019-11-14 11:40 | NUR ---
GPS/RN-NOTES PATIENT IN THE ROOM AWAKE,ALERT CALM ,NO ACUTE DISTRESS NOTED.
[2019-11-14 12:40] LABS: BASOPHILS % (AUTO) 0.4 % (0.0-2.0); EOSINOPHILS % (AUTO) 4.1 % (0.0-6.0); HEMATOCRIT 36 % (39-51); HEMOGLOBIN 11.7 g/dL (13.5-17.5); LYMPHOCYTES # (AUTO) 1.6 /CMM (0.8-4.8); LYMPHOCYTES % (AUTO) 15.8 % (20.0-44.0); MEAN CORPUSCULAR HGB CONC 33 g/dl (31.0-36.0); MEAN CORPUSCULAR VOLUME 88 fL (80-96); MONOCYTES # (AUTO) 1.1 /CMM (0.1-1.30); NEUTROPHILS # (AUTO) 6.8 /CMM (1.8-8.9); NEUTROPHILS % (AUTO) 68.7 % (43.0-81.0); PLATELET COUNT (AUTO) 312 /CMM (150-450); RED BLOOD CELL COUNT(AUTO) 4.05 MIL/uL (4.5-6.0); WHITE BLOOD COUNT (AUTO) 9.9 K/uL (4.3-11.0)
[2019-11-14 13:08] LABS: PHOSPHORUS 3.5 mg/dL (2.5-4.9)
--- NOTE | 2019-11-14 13:13 | NUR ---
GPS/RN-NOTES PER NICOLETTE SHETTY NO NEED FOR SKIN SCRAPING.
[2019-11-14 13:31] LABS: MAGNESIUM 2.7 mg/dL (1.8-2.4)
[2019-11-14 16:00] VITALS: BP 139/59
[2019-11-14] MEDS: ACETAMINOPHEN 325 MG TABLET PO PRN (17:19)
--- NOTE | 2019-11-14 17:26 | NUR ---
GPS/RN-NOTES PATIENT C/O RIGHT LEG PAIN,TYLENOL 650MG P.O GIVEN PRN ORDER. WILL CONT. MONITORING FOR SAFETY.
[2019-11-14 19:53] VITALS: BP 143/75
[2019-11-14] MEDS: ATORVASTATIN 10 MG TABLET PO SCH (21:48)
--- NOTE | 2019-11-14 22:48 | NUR ---
GPS RN NOTE, PATIENT LABS ON 11/14/19 AT 1220 ARE FOLLOWS BUN 40H, MAG 2.7H. PAGED [facility] AND INFORMED DR BENEDICTO DEL RIO OF MY FINDINGS. DR DEL RIO ORDERED IV 1/2 NS @ 75ML/HR ONCE AND TO REPEAT CBC, BMP, MAG, AND PHOS IN THE A.M. IVF 1/2 NS @ 75 ML /HR INFUSING WELL INTO RIGHT FOREARM 22 GAUGE THAT IS INTACT, PATENT, AND FLUSHING WELL WITH NO S/S OF INFILTRATION. ALL ORDERS NOTED AND CARRIED OUT WILL CONTINUE TO MONITOR THIS PATIENT WITH THE HELP OF STAFF.
[2019-11-14] MEDS ORDERED: IV 1/2NS 1000 ML 1,000 ML IV ONE (23:00)
--- NOTE | 2019-11-15 06:46 | NUR ---
GPS RN NOTES: PT SLEEPING COMFORTABLY. SLEPT 5HR THIS SHIFT. NO S/S OF DISTRESS AT THIS TIME. RESPIRATION EVEN AND UNLABORED WITH EQUAL RISE AND FALL OF THE CHEST ON ROOM AIR. IV 1/2 NS INFUSING @ 75ML/HR ORDERED INTACT AND PATENT WITH NO S/S OF INFILTRATION. ALL PATIENT CARE NEEDS MET ANTICIPATED. WILL CONTINUE TO MONITOR AND ENDORSE TO AM SHIFT.
[2019-11-15 08:00] VITALS: BP 130/58
[2019-11-15] MEDS: OLANZAPINE 2.5 MG TABLET PO SCH ×4 (09:15→16:51)
[2019-11-15] MEDS: FOLIC ACID 1 MG TABLET PO SCH (09:15)
[2019-11-15] MEDS: DIVALPROEX SODIUM 125 MG CAP.SPRINK PO SCH ×2 (09:15→21:33)
[2019-11-15] MEDS: CLOTRIMAZOLE 1% 15 GM TUBE TP SCH (09:15)
[2019-11-15] MEDS: CHOLECALCIFEROL 1,000 UNIT TABLET (VIT D3) PO SCH (09:15)
[2019-11-15] MEDS: CEPHALEXIN MONOHYDRATE 500 MG CAPSULE PO SCH ×3 (09:15→16:51)
[2019-11-15] MEDS: Z GUARD REMEDY 2 OZ OINT TP SCH (09:16)
[2019-11-15] MEDS: LORAZEPAM 0.5 MG TABLET PO PRN (13:06)
--- NOTE | 2019-11-15 13:06 | NUR ---
GPS/RN-NOTES NOTED PATIENT WITH AGITATION BANGING HIS HERB-CHAIR TABLE WITH BOTH HANDS ,SPITTING ,SCREAMING AND YELLING AT THE STAFF. REDIRECTED AND OFFERED ATIVAN 1MG P.O PRN ORDER. WILL CONT. MONITORING FOR SAFETY AND BEHAVIOR.
[2019-11-15] MEDS ORDERED: OLANZAPINE 10 MG VIAL IM ONE (13:30)
--- NOTE | 2019-11-15 13:30 | NUR ---
GPS/RN-NOTES PATIENT STILL NOTED WITH AGITATION BANGING HIS HERB-CHAIR THROWING CHAIR,SPITTING ,SCREAMING AND YELLING AT THE STAFF DESPITE ATIVAN 1MG P.O GIVEN. REDIRECTED AND ORIENTED PATIENT . DR. BURROUGHS IN THE UNIT WITH ORDER OF ZYPREXA 5MG IM X1.NOTED AND CARRIED OUT BY [employer] ADMINISTRATOR.WILL CONT. MONITORING FOR SAFETY AND BEHAVIOR
[2019-11-15 16:00] VITALS: BP 121/58
[2019-11-15] MEDS: ACETAMINOPHEN 325 MG TABLET PO PRN (17:24)
--- NOTE | 2019-11-15 17:26 | NUR ---
GPS/RN-NOTES PATIENT C/O LOWER BACK PAIN,TYLENOL 650MG P.O GIVEN PRN ORDER. WILL CONT. MONITORING FOR SAFETY.
[2019-11-15 19:38] LABS: CALCIUM, SERUM 8.6 mg/dL (8.5-10.1); CREATININE 0.9 mg/dL (0.6-1.3); MAGNESIUM 2.3 mg/dL (1.8-2.4); PHOSPHORUS 3.5 mg/dL (2.5-4.9); POTASSIUM 3.8 mmol/L (3.5-5.1)
[2019-11-15 20:10] LABS: BASOPHILS % (AUTO) 0.2 % (0.0-2.0); EOSINOPHILS % (AUTO) 8.3 % (0.0-6.0); HEMATOCRIT 33 % (39-51); HEMOGLOBIN 11.2 g/dL (13.5-17.5); LYMPHOCYTES # (AUTO) 1.5 /CMM (0.8-4.8); LYMPHOCYTES % (AUTO) 18.7 % (20.0-44.0); MEAN CORPUSCULAR HGB CONC 34 g/dl (31.0-36.0); MEAN CORPUSCULAR VOLUME 87 fL (80-96); MONOCYTES # (AUTO) 0.7 /CMM (0.1-1.30); MONOCYTES % (AUTO) 8.8 % (2.0-12.0); NEUTROPHILS # (AUTO) 5.2 /CMM (1.8-8.9); PLATELET COUNT (AUTO) 308 /CMM (150-450); RED BLOOD CELL COUNT(AUTO) 3.84 MIL/uL (4.5-6.0); WHITE BLOOD COUNT (AUTO) 8.1 K/uL (4.3-11.0)
[2019-11-15 20:44] VITALS: BP 140/85
[2019-11-15] MEDS: ATORVASTATIN 10 MG TABLET PO SCH (21:33)
[2019-11-15] MEDS: TEMAZEPAM 7.5 MG CAPSULE PO PRN (22:54)
--- NOTE | 2019-11-15 22:54 | NUR ---
GPS-RN NOTE: INSOMNIA PATIENT C/O INABILITY TO SLEEP. ADMINISTERED RESTORIL 7.5MG PO ORDERED. WILL CONTINUE TO MONITOR.
--- NOTE | 2019-11-16 03:25 | NUR ---
GPS-RN NOTE: CHEMICAL RESTRAINT PATIENT IS BANGING HIS CHAIR, SCREAMING, YELLING, STRIKING OUT AT STAFF, AGGRESSIVE AND UNABLE TO REDIRECT BEHAVIOR. NOTIFIED DR. BURROUGHS AND HE ORDERED ZYPREXA 5MG IM X1, NOTED AND CARRIED OUT. WE WILL CONTINUE TO MONITOR Q15 MIN ROUNDS FOR SAFETY OF THE PATIENT AND THE STAFF.
[2019-11-16] MEDS ORDERED: OLANZAPINE 10 MG VIAL IM ONE (03:30)
--- NOTE | 2019-11-16 07:00 | NUR ---
RN OPENING NOTE RECEIVED PATIENT IN SITTING IN CHAIR IN DINNIG ROOM. A/OX1, NO SOB NOTED, NO S/S OF ANY ACUTE DISTRESS NOTED. NO C/O PAIN AT THIS TIME. RESPIRATIONS ARE EVEN AND UNLABORED WITH EQUAL RISE AND FALL IN CHEST. PATIENT NOTED WITH PERIODS OF CONFUSION, DISORGANIZED, DISORIENTED, REORIENTATION PROVIDED. SAFETY, FALL AND ASPIRATION PRECAUTION IN PLACE AND MAINTAINED AT ALL TIMES. WILL CONTINUE TO MONITOR Q15MIN ROUNDS FOR SAFETY AND BEHAVIOR.
[2019-11-16 08:00] VITALS: BP 148/83
[2019-11-16] MEDS: FOLIC ACID 1 MG TABLET PO SCH (09:00)
[2019-11-16] MEDS: DIVALPROEX SODIUM 125 MG CAP.SPRINK PO SCH ×2 (09:00→20:28)
[2019-11-16] MEDS: CHOLECALCIFEROL 1,000 UNIT TABLET (VIT D3) PO SCH (09:00)
[2019-11-16] MEDS: OLANZAPINE 2.5 MG TABLET PO SCH ×3 (09:00→16:43)
[2019-11-16] MEDS: CEPHALEXIN MONOHYDRATE 500 MG CAPSULE PO SCH ×3 (09:00→16:43)
[2019-11-16] MEDS: CLOTRIMAZOLE 1% 15 GM TUBE TP SCH (09:01)
[2019-11-16] MEDS: Z GUARD REMEDY 2 OZ OINT TP SCH (09:02)
[2019-11-16 16:00] VITALS: BP 136/72
--- NOTE | 2019-11-16 18:30 | NUR ---
GPS RN CLOSING NOTES PT SITTING IN CHAIR IN DINNING ROOM AT THIS TIME. PT REMAINED STABLE THROUGHOUT SHIFT. ALL CARE, NEEDS, MEDICATIONS, AND TREATMENT ADMINISTERED ANTICIPATED PER ORDER. PT KEPT CLEAN AND DRY. FALL, ASPIRATION AND SAFETY PRECAUTION IN PLACE AND MAINTAINED AT ALL TIMES AND Q15M MONITORING PER GPS PROTOCOL. WILL ENDORSE TO SOIL SAMPLER NURSE FOR THIEN
[2019-11-16 20:01] VITALS: BP 136/70
[2019-11-16] MEDS: ATORVASTATIN 10 MG TABLET PO SCH (21:10)
[2019-11-16] MEDS: TEMAZEPAM 7.5 MG CAPSULE PO PRN (22:42)
--- NOTE | 2019-11-16 22:55 | NUR ---
GPS RN NOTES: INSOMNIA UPON DOING ROUNDS, PT AWAKE. ASKED PT TO EXPRESS THOUGHTS AND FEELINGS. PT STATED, "DONT YA SEE ME? IM AWAKE! DAUH LADY" NO SOB. NO RESP DISTRESS. BREATHING EVEN AND UNLABORED. NO PAIN AT THIS TIME. OFFERED RESTORIL PRN ORDERED. PT AGREED AND TOLERATED MEDICATION WELL. CONTINUE TO MONITOR.
[2019-11-17 08:00] VITALS: BP 156/73
[2019-11-17] MEDS: CHOLECALCIFEROL 1,000 UNIT TABLET (VIT D3) PO SCH (08:18)
[2019-11-17] MEDS: OLANZAPINE 2.5 MG TABLET PO SCH ×3 (08:18→16:42)
[2019-11-17] MEDS: CEPHALEXIN MONOHYDRATE 500 MG CAPSULE PO SCH ×3 (08:18→16:42)
[2019-11-17] MEDS: DIVALPROEX SODIUM 125 MG CAP.SPRINK PO SCH ×2 (08:18→21:56)
[2019-11-17] MEDS: FOLIC ACID 1 MG TABLET PO SCH (08:18)
--- NOTE | 2019-11-17 09:00 | NUR ---
RN NOTE- PT CONFUSED, DISORGANIZED, ALERT ORIENTED TO SELF, MED COMPLIANT, PO INTAKE FAIR
[2019-11-17] MEDS: CLOTRIMAZOLE 1% 15 GM TUBE TP SCH (09:34)
[2019-11-17] MEDS: Z GUARD REMEDY 2 OZ OINT TP SCH (09:34)
[2019-11-17] MEDS: LORAZEPAM 0.5 MG TABLET PO PRN ×2 (15:01→23:41)
--- NOTE | 2019-11-17 15:01 | NUR ---
RN NOTE- PT W ANXIETY AND RESTLESSNESS. ATIVAN 1 MG GIVEN
--- NOTE | 2019-11-17 15:49 | NUR ---
Director Data Management Note: SW received a phone call from pt's SW from [facility] ([phone]) and discussed the pts placement. SW stated that the pt will return to [facility] and SW stated that she will keep her updated.
[2019-11-17 16:00] VITALS: BP 136/71
--- NOTE | 2019-11-17 19:52 | NUR ---
GPS RN NOTES PATIENT IN BED, ASLEEP, ALERT AND ORIENTED X 1. PT IS CONFUSED, DISORGANIZED. PARANOID. PT IS UNSTABLE AND NEED ONE PERSON ASSIST. BREATHING EVEN AND UNLABORED ON ROOM AIR. SHOWS NO SIGNS OF ACUTE RESPIRATORY DISTRESS, NO ACUTE PAIN. DENIES SI AND HI. SAFETY PRECAUTIONS IN PLACE. BED IN LOWEST POSITION, LOCKED, AND WILL CONTINUE TO MONITOR.
[2019-11-17 20:00] VITALS: BP 162/94
[2019-11-17 20:23] VITALS: BP 162/94
[2019-11-17] MEDS: ATORVASTATIN 10 MG TABLET PO SCH (21:56)
--- NOTE | 2019-11-17 23:41 | NUR ---
GPS RN NOTES PATIENT YELLING AND VERY AGITATED IN HERB CHAIR. GIVEN PRN ATIVAN. VITAL SIGNS WNL. WILL CONTINUE TO MONITOR.
[2019-11-18 08:00] VITALS: BP 122/70
[2019-11-18] MEDS: DIVALPROEX SODIUM 125 MG CAP.SPRINK PO SCH ×2 (08:37→21:25)
[2019-11-18] MEDS: CHOLECALCIFEROL 1,000 UNIT TABLET (VIT D3) PO SCH (08:37)
[2019-11-18] MEDS: FOLIC ACID 1 MG TABLET PO SCH (08:37)
[2019-11-18] MEDS: OLANZAPINE 2.5 MG TABLET PO SCH ×3 (08:37→16:28)
[2019-11-18] MEDS: CEPHALEXIN MONOHYDRATE 500 MG CAPSULE PO SCH ×3 (08:37→16:28)
[2019-11-18] MEDS: CLOTRIMAZOLE 1% 15 GM TUBE TP SCH (08:41)
[2019-11-18] MEDS: Z GUARD REMEDY 2 OZ OINT TP SCH (08:41)
--- NOTE | 2019-11-18 09:00 | NUR ---
RN NOTE- PT ASLEEP IN BED , EASILY AWAKENED, MED COMPLIANT CRUSHED W APPLESAUCE, PO INTAKE FAIR DEPENDING ON MEAL, CONFUSED, DISORGANIZED NO BEHAVIORAL ISSUES
--- NOTE | 2019-11-18 11:20 | NUR ---
RN NOTE- PT AGITATED. SCREAMING AND STRIKING CHAIR AND TABLE ATIVAN 1 MG GIVEN
[2019-11-18] MEDS: LORAZEPAM 0.5 MG TABLET PO PRN (11:23)
--- NOTE | 2019-11-18 12:15 | NUR ---
RN NOTE- PT CALMER. DECREASED AGITATION. RX EFFECTIVE
[2019-11-18 16:00] VITALS: BP 135/62
--- NOTE | 2019-11-18 17:37 | NUR ---
RN NOTE- PT TAKING RX CRUSHED IN APPLESAUCE OR PUDDING. PT STILL W COUGH FROM TIME TO TIME . LUNGS CLEAR AUSCULTATION, DEEP EVEN NON LABORED. NO RHONCHI NO RALES NO WHEEZES. THICKENER USED W THIN LIQUIDS. PT DRINKING MILK WITHOUT ISSUE. AGITATION PRESENT FROM TIME TO TIME W YELLING AND CALLING OUT. CONFUSED. DIRECTABLE
[2019-11-18 20:06] VITALS: BP 158/87
[2019-11-18] MEDS: ATORVASTATIN 10 MG TABLET PO SCH (21:25)
[2019-11-18] MEDS: TEMAZEPAM 7.5 MG CAPSULE PO PRN (21:58)
--- NOTE | 2019-11-19 06:45 | NUR ---
GPS RN CLOSING NOTES: PT AWAKE, A/O X1. MED COMPLIANT. PT WAS UP ALL NIGHT EVEN AFTER TAKING RESTORIL 7.5MG 1TAB PO ORDERED FOR INSOMNIA. NO S/S OF DISTRESS. RESPIRATION EVEN AND UNLABORED WITH EQUAL RISE AND FALL OF THE CHEST ON ROOM AIR. ALL PT CARE NEEDS MET ANTICIPATED. WILL CONTINUE TO MONITOR AND ENDORSE TO AM SHIFT.
--- NOTE | 2019-11-19 08:59 | NUR ---
Family Contact: JACINTO called patient's son Siva ([phone]) and informed him that the pt is going to be discharged back to [facility] the following day but stated that it is tentative because the pt may need one more day. JACINTO stated that he will be informed.
[2019-11-19] MEDS: OLANZAPINE 2.5 MG TABLET PO SCH ×3 (09:27→17:07)
[2019-11-19] MEDS: FOLIC ACID 1 MG TABLET PO SCH (09:27)
[2019-11-19] MEDS: DIVALPROEX SODIUM 125 MG CAP.SPRINK PO SCH ×3 (09:27→20:42)
[2019-11-19] MEDS: CHOLECALCIFEROL 1,000 UNIT TABLET (VIT D3) PO SCH (09:27)
[2019-11-19] MEDS: CEPHALEXIN MONOHYDRATE 500 MG CAPSULE PO SCH ×3 (09:27→17:07)
[2019-11-19] MEDS: Z GUARD REMEDY 2 OZ OINT TP SCH (09:28)
[2019-11-19] MEDS: CLOTRIMAZOLE 1% 15 GM TUBE TP SCH (09:55)
--- NOTE | 2019-11-19 10:35 | NUR ---
Family Contact: SW called patient's son, Siva ([phone]), and informed him that the pt will be discharged to [facility] on Sunday instead.
--- NOTE | 2019-11-19 11:03 | NUR ---
SNF Contact: SW faxed updated notes and referral to [facility] with attention to Jamia to the fax number: [phone].
--- NOTE | 2019-11-19 12:08 | NUR ---
WOUND CARE CONSULT: PT PRESENTS WITH MULTIPLE SCARS AND SCABS ON BODY WELL INCONTINENCE ASSOCIATED SKIN IRRITATION TO INNER BUTTOCKS, PRESENT ON ADMISSION. RECOMMENDATIONS MADE FOR SKIN PROTECTION. DISCUSSED WITH NURSING STAFF. WILL SEE PRN. KRAMER IN AGREEMENT WITH PLAN OF CARE.
--- NOTE | 2019-11-19 14:12 | NUR ---
GROUP THERAPY: SW assessed pts ability to participate in group milieu, pt is unable to participate due to cognitive impairment. Pt is only alert to himself and unable to engage in a meaningful conversation.
[2019-11-19 16:00] VITALS: BP 137/74
[2019-11-19] MEDS: LORAZEPAM 0.5 MG TABLET PO PRN (20:01)
--- NOTE | 2019-11-19 20:02 | NUR ---
GPS RN NOTE: PT IS ANXIOUS AND RESTLESS, ATIVAN 0.5MG 2TABS GIVEN PRN ORDERED AT 2001. WILL CONTINUE TO MONITOR.
[2019-11-19 20:08] VITALS: BP 156/68
[2019-11-19] MEDS: TEMAZEPAM 7.5 MG CAPSULE PO PRN (22:19)
[2019-11-19] MEDS: ATORVASTATIN 10 MG TABLET PO SCH (22:19)
--- NOTE | 2019-11-20 06:33 | NUR ---
GPS RN CLOSING NOTES: PT AWAKE, A/O X1. SITTING IN HERB CHAIR IN HALLWAY. MED COMPLIANT. PT CONDITION REMAINS THE SAME. PT HAD TWO PRN MEDICATIONS THIS SHIFT, ATIVAN 0.5MG 2TABS/1MG AT 2000 FOR ANXIETY AND RESTORIL 7.5MG 1 CAP PO AT 2219 BUT SLEPT FOR 1HR. PT SOILED DIAPER CHANGED AT 0630. NO S/S OF DISTRESS. RESPIRATION EVEN AND UNLABORED WITH EQUAL RISE AND FALL OF THE CHEST ON ROOM AIR. ALL PT CARE NEEDS MET ANTICIPATED. WILL CONTINUE TO MONITOR AND ENDORSE TO AM SHIFT.
[2019-11-20 08:00] VITALS: BP 148/84
[2019-11-20] MEDS: Z GUARD REMEDY 2 OZ OINT TP SCH (08:57)
[2019-11-20] MEDS: CLOTRIMAZOLE 1% 15 GM TUBE TP SCH (08:57)
[2019-11-20] MEDS: OLANZAPINE 2.5 MG TABLET PO SCH ×3 (09:00→16:58)
[2019-11-20] MEDS: CEPHALEXIN MONOHYDRATE 500 MG CAPSULE PO SCH ×3 (09:00→16:58)
[2019-11-20] MEDS: DIVALPROEX SODIUM 125 MG CAP.SPRINK PO SCH ×3 (09:00→21:19)
[2019-11-20] MEDS: FOLIC ACID 1 MG TABLET PO SCH (09:00)
[2019-11-20] MEDS: CHOLECALCIFEROL 1,000 UNIT TABLET (VIT D3) PO SCH (09:00)
[2019-11-20] MEDS ORDERED: TEMAZEPAM 7.5 MG CAPSULE PO PRN (09:30)
--- NOTE | 2019-11-20 11:51 | NUR ---
Family Contact: SW called patient's son, Siva ([phone]), and informed him that the pt will be discharged to [facility] on Sunday11/21/19. Son agrees with discharge plan.
[2019-11-20 16:07] VITALS: BP 144/78
[2019-11-20 19:50] VITALS: BP 141/51
[2019-11-20 19:55] VITALS: BP 141/51
[2019-11-20] MEDS: Z GUARD REMEDY 2 OZ OINT TP PRN (21:20)
[2019-11-20] MEDS: ATORVASTATIN 10 MG TABLET PO SCH (21:34)
[2019-11-21 08:00] VITALS: BP 125/67
--- NOTE | 2019-11-21 08:21 | NUR ---
DISCHARGE NOTE: Pt will be discharged at 1:30pm via AM [facility] ([facility]) [address] [place] [address]. [place] [address] P: [phone]. Patient's son, Siva ([phone]) has been notified and agrees with discharge plan. Pts mood is labile with congruent affect. Pt denies visual/auditory hallucinations and denies suicidal/homicidal ideation. Pt is alert and oriented x1, self only. Pt ambulates with assistance only. Pt is appropriately groomed and dressed. Pt will be under the care of Psychiatrist: Dr. Idalmis Wong [address] [place] [address] [address] [address] and [employer] Tube Bender: Dr Benjamin Address: [address] [place] [address] [address] [address] . The multidisciplinary exit care form was done, printed, signed, and given to the patient.
[2019-11-21] MEDS: CHOLECALCIFEROL 1,000 UNIT TABLET (VIT D3) PO SCH (08:52)
[2019-11-21] MEDS: DIVALPROEX SODIUM 125 MG CAP.SPRINK PO SCH ×2 (08:53→12:09)
[2019-11-21] MEDS: FOLIC ACID 1 MG TABLET PO SCH (08:53)
[2019-11-21] MEDS: OLANZAPINE 2.5 MG TABLET PO SCH ×2 (08:53→12:09)
[2019-11-21] MEDS: CEPHALEXIN MONOHYDRATE 500 MG CAPSULE PO SCH ×2 (08:53→12:09)
--- NOTE | 2019-11-21 09:00 | NUR ---
RN NOTE- PT IN BED RESTING QUIETLY, EASILY AWAKENED, MED COMPLIANT , PO INTAKE GOOD, DISORGANIZED, CONFUSED, ORIENTED TO SELF ONLY NO BEHAVIORAL ISSUES, NEEDS ATTENDED
[2019-11-21] MEDS: Z GUARD REMEDY 2 OZ OINT TP SCH (09:08)
[2019-11-21] MEDS: CLOTRIMAZOLE 1% 15 GM TUBE TP SCH (09:08)
--- NOTE | 2019-11-21 09:30 | NUR ---
Dr. Hansen gave an order to D/C hold and D/C to [facility], to continue same meds including prn and to follow up with psych and medical doctors.
--- NOTE | 2019-11-21 13:00 | NUR ---
RN NOTE- PT DISCHARGED AT THIS TIME TO [facility] [place] VIA GURNEY AND AMBULANCE. UNABLE TO ASSESS FOR FLU SHOT HISTORY OR ADMINISTRATION DUE TO PTS COGNITIVE STATUS. SKIN ISSUES PHOTOGRAPHED AND DOCUMENTED FOR CHART. VS STABLE, PT IS ALERT ORIENTED TO SELF ONLY, CONFUSED, DISORGANIZED CALM AND DIRECTABLE. CONTRABAND BELT RETURNED TO PT, REPORT CALLED TO ADELA AT FACILITY, DC PLAN AND ORDERS REVIEWED W AMBULANCE STAFF. ID [id number] REMOVED AND PT ESCORTED OFF UNIT.
== END 2019-11-21 13:00 | DRG 885 ==
LOC: GPS 21:28
PROVIDERS: ADMIT Psychiatry & Neurology Psychosomatic Medicine; ATTEND Student in an Organized Health Care Education/Training Program
DX: F29 Unspecified psychosis not due to a substance or known physiological condition (principal); F01.50 Vascular dementia, unspecified severity, without behavioral disturbance, psychotic disturbance, mood disturbance, and anxiety; N17.0 Acute kidney failure with tubular necrosis; I11.0 Hypertensive heart disease with heart failure; N39.0 Urinary tract infection, site not specified; I50.32 Chronic diastolic (congestive) heart failure; F25.0 Schizoaffective disorder, bipolar type; F03.90 Unspecified dementia, unspecified severity, without behavioral disturbance, psychotic disturbance, mood disturbance, and anxiety; D64.9 Anemia, unspecified; Z73.6 Limitation of activities due to disability; J44.9 Chronic obstructive pulmonary disease, unspecified; E78.5 Hyperlipidemia, unspecified; B86 Scabies
CPT/HCPCS: 36415; 71045-TC; 80048-TC; 80061-TC; 80164-TC; 81000-TC; 82962-TC; 83735-TC; 84100-TC; 85025-TC; 87081-TC; 92526; 92611-TC; 97116-TC; 97530-TC; J3490

== ENCOUNTER 2019-11-21 21:45 | Inpatient (IN) | payer MEDICARE, OTHER ==
[~2019-11-21] VITALS: Ht 180.3 cm; Wt 83.9 kg
[~2019-11-21 21:45] MED LIST changes: +ATOR20TA PO; +CEPH-570 PO; +CLOT15CR27 TP; +CLOT15CR5 TP; +DEXT15DR6 EACHEYE; +GUAI-1189 PO; +HYDR-500 PO; +QUET25TA PO
--- NOTE | 2019-11-21 21:50 | NUR ---
PT SENT FROM [facility] C/O AGITATION. PT AAOX3, REPSIRATIONS EVEN ADN UNLABORED ON RA W/ NAD NOTED. PT CONNECTED TO THE MONITOR AND POX
--- NOTE | 2019-11-21 21:55 | NUR ---
BLOOD COLLECTED AND SENT TO LAB
[2019-11-21 22:37] LABS: HEMOGLOBIN 11.3 g/dL (13.5-17.5); LYMPHOCYTES # (AUTO) 1.5 /CMM (0.8-4.8)
[2019-11-21 22:40] LABS: BASOPHILS % (AUTO) 0.4 % (0.0-2.0); EOSINOPHILS % (AUTO) 8.9 % (0.0-6.0); HEMATOCRIT 34 % (39-51); MEAN CORPUSCULAR HGB CONC 34 g/dl (31.0-36.0); MEAN CORPUSCULAR VOLUME 88 fL (80-96); MONOCYTES # (AUTO) 0.8 /CMM (0.1-1.30); MONOCYTES % (AUTO) 9.4 % (2.0-12.0); NEUTROPHILS # (AUTO) 5.2 /CMM (1.8-8.9); NEUTROPHILS % (AUTO) 63.3 % (43.0-81.0); PLATELET COUNT (AUTO) 307 /CMM (150-450); RED BLOOD CELL COUNT(AUTO) 3.85 MIL/uL (4.5-6.0); WHITE BLOOD COUNT (AUTO) 8.2 K/uL (4.3-11.0)
[2019-11-21 22:54] LABS: CALCIUM, SERUM 8.7 mg/dL (8.5-10.1); CARBON DIOXIDE 28 mmol/L (21-32); CHLORIDE 105 mmol/L (98-107); CREATININE 1.1 mg/dL (0.6-1.3); GLUCOSE 99 mg/dL (74-106); POTASSIUM 4.3 mmol/L (3.5-5.1); SODIUM SERUM 140 mmol/L (136-145); UREA NITROGEN, BLOOD 37 mg/dL (7-18)
[2019-11-21 23:00] LABS: ALANINE AMINOTRANSFERASE 22 U/L (12-78); ALBUMIN 2.8 g/dL (3.4-5.0); ALCOHOL, BLOOD < 3 mg/dL (0-0); ALKALINE PHOSPHATASE 90 U/L (46-116); ASPARTATE AMINOTRANSFERASE 36 U/L (15-37); BILIRUBIN,DIRECT 0.1 mg/dL (0.0-0.2); BILIRUBIN,TOTAL 0.2 mg/dL (0.2-1.0); TOTAL PROTEIN, SERUM 7.3 g/dL (6.4-8.2)
[2019-11-21 23:02] LABS: ACETAMINOPHEN < 2 ug/ml (10-30)
--- NOTE | 2019-11-21 23:13 | NUR ---
PT STILL UNABLE TO PROVIDE URINE. AWARE
[2019-11-22 00:34] LABS: APPEARANCE,URINE Clear (CLEAR); BILIRUBIN,URINE Negative (NEGATIVE); BLOOD, URINE Trace-lysed Ery/uL (NEGATIVE); COLOR,URINE Orange (YELLOW); KETONES,URINE Trace (NEGATIVE); LEUKOCYTE ESTERASE ,URINE Trace (NEGATIVE); NITRITE, URINE Negative (NEGATIVE); PROTEIN,URINE Trace mg/dl (NEGATIVE); UGLUCOSE Negative (NEGATIVE)
[2019-11-22] MEDS ORDERED: OLANZAPINE 10 MG VIAL IM ONE ×2 (00:59→01:30)
[2019-11-22 01:06] LABS: BACTERIA,URINE None seen /HPF (None Seen); RBC,URINE 0-2 /HPF (0-2); SQUAMOUS EPITHELIAL CELL,UR Few /HPF (None Seen); URINE AMORPHOUS URATE Few /HPF (None Seen)
[2019-11-22] MEDS ORDERED: diphenhydrAMINE HCL 50 MG/ML VIAL ONE (01:37)
[2019-11-22] MEDS ORDERED: diphenhydrAMINE HCL 50 MG/ML VIAL IM ONE (02:00)
--- NOTE | 2019-11-22 02:43 | NUR ---
NURSE NOT AVAILABLE FOR REPORT
--- NOTE | 2019-11-22 03:34 | NUR ---
REPORT GIVEN TO GREGG BERKOWITZ FOR THIEN
--- NOTE | 2019-11-22 03:44 | NUR ---
GPS ADMISSION NOTE, RECEIVED PATIENT FROM [facility]. PATIENT ARRIVED ON THIS UNIT AT 0344 VIA STRETCHER 1 COLLEGE BASKETBALL COACH ESCORT. PATIENT ADMITTED ON A 5150 HOLD FOR GD. PER HOLD PATIENT IS CONFUSED, UNABLE TO ANSWER QUESTIONS, AND HAS DELUSIONS ABOUT HIS PRESENT SITUATION. PATIENT WAS YELLING AND ATTEMPTING TO LEAVE FACILITY WITHOUT PERMISSION. PATIENT HAS NO VIABLE PLAN FOR SELF CARE AT THIS TIME. THE 5150 WAS REVIEWED AND THE DOCUMENTATION IN THE 5150 HOLD APPEARS TO REFLECT THE PRESENTATION OF THE PATIENT. UPON FACE TO FACE ASSESSMENT PATIENT IS NOTED TO BEING HYPERVERBAL, DISHEVELED, DISORGANIZED, UNCOOPERATIVE, CONFUSED, PARANOID, ANGRY, AND NEEDS REDIRECTION. PATIENT IS CURRENTLY LYING IN BED AWAKE, HAS NO S/S OR COMPLAINTS OF PAIN. PATIENT IS DISPLAYING NO S/S OF APPARENT DISTRESS. PATIENT BREATHING IS UNLABORED WITH EQUAL RISE AND FALL OF THE CHEST. PATIENT IS ALERT AND ORIENTATED X 1 ON ROOM AIR. PATIENT ASSISTED WITH TURING AND REPOSITIONING Q2HR AND PRN FOR COMFORT AND CIRCULATION. PATIENT HAS NO NEEDS AT THIS TIME. PATIENT DENIES SUICIDE IDEATIONS AND HOMICIDAL IDEATIONS AT THIS TIME. PATIENT REFUSED TO SIGN ALL NECESSARY PAPER WORK TO CONFUSED . PATIENT ADVISED OF HIS HOLD AND PATIENT RIGHTS BOOKLET GIVEN. PATIENT IS UNDER THE PSYCHIATRIC CARE OF DR. SOLER AND THE MEDICAL CARE OF DR DEJESUS. PATIENT BELONGINGS WERE INVENTORIED AND CHECKED FOR CONTRABAND. ALL CONTRABAND REMOVED AND STORED IN PATIENT HALLWAY LOCKER. PATIENT ADVANCED DIRECTIVES PREFERENCE, IMMUNIZATIONS QUESTIONER, NECESSARY PAPERWORK COMPLETED. PATIENT REFUSED SKIN ASSESSMENT TOO CONFUSED AND VIOLENT. PATIENT REFUSED FLU SHOT AND PNA SHOT AT THIS TIME. PATIENT ORIENTATED TO ROOM, FLOOR, AND STAFF WITH ALL QUESTIONS ANSWERED. PATIENT EDUCATED ON THE USE OF THE CALL MAN. PATIENT BED SIDE RAILS ARE UP X 2 FOR SAFETY. PATIENT BED IS LOCKED, LOW AND I WILL CONTINUE TO MONITOR THIS PATIENT Q 15 MIN WITH THE HELP OF STAFF TO MAINTAIN SAFETY.
[2019-11-22 04:00] VITALS: BP 130/83
--- NOTE | 2019-11-22 04:25 | NUR ---
PT TRANSFERRED TO ROOM IN STABLE CONDITION
[2019-11-22] MEDS ORDERED: hydrOXYzine HCL SYRUP 10 MG/5 ML UDC PO PRN (04:30)
[2019-11-22] MEDS ORDERED: MAG HYDROX/AL HYDROX/SIMETH 30 ML UDC PO PRN (04:30)
[2019-11-22] MEDS ORDERED: BLOOD SUGAR DIAGNOSTIC 1 EACH STRIP IN ONE (04:30)
[2019-11-22] MEDS ORDERED: MAGNESIUM HYDROXIDE 30 ML UDC PO PRN (04:30)
[2019-11-22 07:58] VITALS: BP 120/87
[2019-11-22] MEDS: CHOLECALCIFEROL 1,000 UNIT TABLET (VIT D3) PO SCH (08:42)
[2019-11-22] MEDS: LORAZEPAM 0.5 MG TABLET PO PRN ×2 (14:16→19:57)
[2019-11-22] MEDS: OLANZAPINE 5 MG TABLET PO SCH ×2 (14:16→17:26)
[2019-11-22] MEDS: DIVALPROEX SODIUM 250 MG TABLET.DR PO SCH (14:16)
--- NOTE | 2019-11-22 14:28 | NUR ---
RN NOTE: ANXIETY PT EXHIBITING INCREASED ANXIETY AND AGITATION. YELLING AND DIFFICULT TO BE REDIRETED. MEDICATED WITH ATIVAN 0.5 MG PO PRN
[2019-11-22 16:10] VITALS: BP 123/75
[2019-11-22 19:59] VITALS: BP 128/69
[2019-11-22 20:15] VITALS: BP 128/69
[2019-11-22] MEDS: ATORVASTATIN 10 MG TABLET PO SCH (21:16)
[2019-11-22] MEDS ORDERED: POLYVINYL ALCOHOL 15 ML BOTTLE EACHEYE PRN (23:30)
[2019-11-23] MEDS: LORAZEPAM 0.5 MG TABLET PO PRN ×2 (04:18→14:48)
[2019-11-23 06:49] LABS: CALCIUM, SERUM 9.1 mg/dL (8.5-10.1)
[2019-11-23 06:50] LABS: BASOPHILS % (AUTO) 0.4 % (0.0-2.0); EOSINOPHILS % (AUTO) 7.6 % (0.0-6.0); HEMATOCRIT 35 % (39-51); HEMOGLOBIN 11.6 g/dL (13.5-17.5); LYMPHOCYTES # (AUTO) 1.7 /CMM (0.8-4.8); LYMPHOCYTES % (AUTO) 20.1 % (20.0-44.0); MEAN CORPUSCULAR HGB CONC 33 g/dl (31.0-36.0); MEAN CORPUSCULAR VOLUME 87 fL (80-96); MONOCYTES # (AUTO) 0.9 /CMM (0.1-1.30); MONOCYTES % (AUTO) 10.7 % (2.0-12.0); NEUTROPHILS # (AUTO) 5.1 /CMM (1.8-8.9); NEUTROPHILS % (AUTO) 61.2 % (43.0-81.0); PLATELET COUNT (AUTO) 287 /CMM (150-450); RED BLOOD CELL COUNT(AUTO) 4.01 MIL/uL (4.5-6.0); WHITE BLOOD COUNT (AUTO) 8.4 K/uL (4.3-11.0)
[2019-11-23 08:00] VITALS: BP 118/67
[2019-11-23] MEDS: CEPHALEXIN MONOHYDRATE 500 MG CAPSULE PO SCH ×3 (08:50→17:10)
[2019-11-23] MEDS: FOLIC ACID 1 MG TABLET PO SCH (08:51)
[2019-11-23] MEDS: OLANZAPINE 5 MG TABLET PO SCH ×3 (08:51→17:10)
[2019-11-23] MEDS: CHOLECALCIFEROL 1,000 UNIT TABLET (VIT D3) PO SCH (08:51)
[2019-11-23] MEDS ORDERED: CLOTRIMAZOLE/BETAMETASONE DIPROPIONATE 15 GM TUBE TP SCH (09:00)
[2019-11-23] MEDS: CLOTRIMAZOLE 1% 15 GM TUBE TP SCH (09:00)
[2019-11-23] MEDS: DIVALPROEX SODIUM 250 MG TABLET.DR PO SCH (12:48)
--- NOTE | 2019-11-23 14:48 | NUR ---
RN NOTE: ANXIETY AND AGITATION PT EXHIBITING INCREASED ANXIETY AND AGITATION. YELLING AND HITTING TABLE IN FRONT OF HIM IN GROUP ROOM. MEDICATED WITH ATIVAN 0.5 MG PO PRN
[2019-11-23 16:00] VITALS: BP 127/64
[2019-11-23 20:00] VITALS: BP 128/67
[2019-11-23] MEDS: ATORVASTATIN 10 MG TABLET PO SCH (21:19)
[2019-11-23] MEDS: TEMAZEPAM 7.5 MG CAPSULE PO PRN (22:44)
--- NOTE | 2019-11-24 07:00 | NUR ---
GPS RN NOTES: PT. RESTING IN HIS ROOM, NO S/S OF DISTRESS NOTED ,NO CHANGE OF CONDITION NOTED , ALL CARE NEEDS MET ANTICIPATED. MED COMPLIANT ,WILL CONTINUE TO MONITOR FOR SAFETY BEHAVIOR, AND ENDORSE TO AM SHIFT FOR CONTINUITY OF CARE.
[2019-11-24 08:00] VITALS: BP 106/73
[2019-11-24] MEDS: CEPHALEXIN MONOHYDRATE 500 MG CAPSULE PO SCH ×3 (08:39→17:09)
[2019-11-24] MEDS: FOLIC ACID 1 MG TABLET PO SCH (08:39)
[2019-11-24] MEDS: OLANZAPINE 5 MG TABLET PO SCH ×3 (08:40→17:09)
[2019-11-24] MEDS: CHOLECALCIFEROL 1,000 UNIT TABLET (VIT D3) PO SCH (08:40)
[2019-11-24] MEDS: Z GUARD REMEDY 2 OZ OINT TP PRN ×2 (09:29→09:30)
[2019-11-24] MEDS: CLOTRIMAZOLE 1% 15 GM TUBE TP SCH (09:30)
[2019-11-24] MEDS: Z GUARD REMEDY 2 OZ OINT TP SCH (09:30)
[2019-11-24] MEDS: DIVALPROEX SODIUM 250 MG TABLET.DR PO SCH (12:18)
--- NOTE | 2019-11-24 15:37 | NUR ---
SNF Contact: SW contacted Jamia ([phone]), assistance coordinator from [facility], and he stated that they would prefer that the SW send the pt to an alternative placement.
[2019-11-24 16:00] VITALS: BP 124/64
[2019-11-24 18:58] LABS: APPEARANCE,URINE CLEAR (CLEAR); BILIRUBIN,URINE NEGATIVE (NEGATIVE); BLOOD, URINE NEGATIVE Ery/uL (NEGATIVE); COLOR,URINE YELLOW (YELLOW); KETONES,URINE NEGATIVE (NEGATIVE); LEUKOCYTE ESTERASE ,URINE NEGATIVE (NEGATIVE); NITRITE, URINE NEGATIVE (NEGATIVE); PROTEIN,URINE NEGATIVE (NEGATIVE); UGLUCOSE NEGATIVE (NEGATIVE); UROBILINOGEN,URINE 0.2 EU/dL (0.2)
[2019-11-24] MEDS: ACETAMINOPHEN 325 MG TABLET PO PRN (19:46)
--- NOTE | 2019-11-24 19:47 | NUR ---
GPS RN NOTE: PT COMPLAINED OF LOWER BACK PAIN. TYLENOL 325MG 2TABS GIVEN PO ORDERED AT 1945. WILL CONTINUE TO MONITOR AND REASSESS.
[2019-11-24] MEDS: LORAZEPAM 0.5 MG TABLET PO PRN (19:51)
--- NOTE | 2019-11-24 19:53 | NUR ---
GPS RN NOTE: PT IS AGITATED, RESTLESS, BANGING ON HERB CHAIR. REFUSING REDIRECTION. ATIVAN 0.5MG 1TAB GIVEN PO/CRUSHED ORDERED. TOLERATED WELL, NO S/S OF ASPIRATION. WILL CONTINUE TO MONITOR AND ASSESS.
[2019-11-24 19:59] VITALS: BP 136/67
--- NOTE | 2019-11-24 20:23 | NUR ---
GPS RN NOTE: RECEIVED PT IN HALLWAY SITTING ON HERB CHAIR, A/O 1X. FLAT AFFECT, RESTLESS, ANXIOUS, DISORGANIZED, DISORIENTED, CONFUSED, COMPLAINING OF LOWER BACK PAIN. TYLENOL 325MG 2TABS GIVEN PO/CRUSHED AT 1946. AT 1950 PT WAS GIVEN ATIVAN 0.5MG 1TAB PO/CRUSHED FOR AGITATION, YELLING, BANGING ON CHAIR, REFUSING REDIRECTION. PT CURRENTLY CALM. OFFERED FLUIDS AND SNACKS TOLERATED. WILL CONTINUE TO MONITOR Q15 MINS AND Q1 HR FOR SAFETY, MOOD, AND BEHAVIOR.
[2019-11-24] MEDS: hydrOXYzine PAMOATE 25 MG CAPSULE PO PRN (21:33)
[2019-11-24] MEDS: TEMAZEPAM 7.5 MG CAPSULE PO PRN (21:33)
[2019-11-24] MEDS: ATORVASTATIN 10 MG TABLET PO SCH (21:33)
--- NOTE | 2019-11-24 22:34 | NUR ---
GPS RN NOTE: RESTORIL 7.5MG 1 CAP PO GIVEN AT 2132. PT STILL AWAKE. WILL CONTINUE TO MONITOR
--- NOTE | 2019-11-24 22:38 | NUR ---
GPS RN NOTE: VISTARIL 25MG/1CAP GIVEN PO FOR ITCHINESS. WILL CONTINUE TO MONITOR
--- NOTE | 2019-11-25 01:35 | NUR ---
GPS RN NOTE: PT HAD A BM, SOILED DIAPER CHANGED, Z-GUARD APPLIED TO GROIN AND SACRAL AREAS. PT LAYING COMFORTABLE ON BED. WILL CONTINUE TO MONITOR.
[2019-11-25] MEDS: hydrOXYzine PAMOATE 25 MG CAPSULE PO PRN ×3 (04:02→23:23)
--- NOTE | 2019-11-25 06:19 | NUR ---
GPS RN CLOSING NOTES: PT AWAKE A/O X1, SITTING IN HERB CHAIR IN DAY ROOM. SLEPT 1.5HR EVEN THOUGH PT HAD SLEEP MEDICATION. PT WOKE UP CONFUSED AND DISORIENTED, YELLING, AGITATED, GETTING OUT OF BED AND REFUSING REDIRECTION, HIGH FALL RISK. NO S/S OF DISTRESS. RESPIRATION EVEN AND UNLABORED WITH EQUAL RISE AND FALL OF THE CHEST ON ROOM AIR. ALL PT CARE NEEDS MET ANTICIPATED. WILL CONTINUE TO MONITOR AND ENDORSE TO AM SHIFT.
[2019-11-25 08:00] VITALS: BP 136/75
[2019-11-25] MEDS: LORAZEPAM 0.5 MG TABLET PO PRN ×2 (08:35→17:48)
[2019-11-25] MEDS: FOLIC ACID 1 MG TABLET PO SCH (08:35)
[2019-11-25] MEDS: OLANZAPINE 5 MG TABLET PO SCH ×3 (08:35→17:47)
[2019-11-25] MEDS: ACETAMINOPHEN 325 MG TABLET PO PRN ×2 (08:35→17:48)
[2019-11-25] MEDS: CHOLECALCIFEROL 1,000 UNIT TABLET (VIT D3) PO SCH (08:35)
[2019-11-25] MEDS: CEPHALEXIN MONOHYDRATE 500 MG CAPSULE PO SCH ×3 (08:35→17:48)
[2019-11-25] MEDS: Z GUARD REMEDY 2 OZ OINT TP SCH (08:36)
[2019-11-25] MEDS: CLOTRIMAZOLE 1% 15 GM TUBE TP SCH (08:37)
--- NOTE | 2019-11-25 08:39 | NUR ---
RN NOTE: ANXIETY AND PAIN PT EXHIBITING INCREASED ANXIETY AND AGITATION. UNABLE TO BE REDIRECTED. MEDICATED WITH ATIVAN PO PRN. PT YELLING AND STATING "I HAVE A PAIN IN MY ASS MOTHER DIETER". MEDICATED WITH TYLENOL PO PRN. WILL FOLLOW UP AND ASSESS RESULTS OF PRN ADMINISTRATION.
--- NOTE | 2019-11-25 10:15 | NUR ---
Family Contact: SW called pt's son, Siva ([phone]), and informed him that the pt was admitted back to the hospital from [facility]. Pts son expressed frustration with not being informed of pts placement back to the hospital. SW acknowledged the pts son's feelings and then inquired about placement. SW informed him that the facility does not want the pt back. Pts son stated that he is not the DPOA and he just cannot make decisions at this time and stated that the SW may place the pt at any facility that will take him.
--- NOTE | 2019-11-25 10:30 | NUR ---
Initial Discharge Plan: Pt currently resides at [facility] located at [address] [place] [id number]; ([phone]). Per pt's son, Siva ([phone]), he would like to consider alternative placement options. SW will work with the pt, pts son and the MD regarding appropriate discharge planning. SW will form a safe and proper discharge plan.
--- NOTE | 2019-11-25 10:32 | NUR ---
WOUND CARE CONSULT: PT RESTING AT THIS TIME. REVIEWED CHART, NURSING DOCUMENTATION AND PHOTOS WHICH INDICATE SKIN DISCOLORATION AND DRY SKIN, PRESENT ON ADMISSION. RECOMMENDATIONS MADE FOR SKIN PROTECTION. DISCUSSED WITH NURSING STAFF. WILL SEE PRN. KRAMER IN AGREEMENT WITH PLAN OF CARE.
--- NOTE | 2019-11-25 10:47 | NUR ---
SNF Referral: SW faxed a referral to the following two facilities: [facility] with attention to Glory to the fax number: [phone] [facility] with attention to Jeovanny to the fax number: [phone]
[2019-11-25] MEDS ORDERED: MINERAL OIL/PETROLATUM,WHITE 120 GM JAR TP PRN (11:00)
[2019-11-25] MEDS: DIVALPROEX SODIUM 250 MG TABLET.DR PO SCH (12:27)
[2019-11-25 16:00] VITALS: BP 129/71
--- NOTE | 2019-11-25 17:49 | NUR ---
RN NOTE: ANXIETY AND PAIN PT AGITATED, IRRITABLE, YELLING, COMPLAINING OF PAIN. MEDICATED WITH ATIVAN AND TYLENOL PRN
[2019-11-25 19:52] VITALS: BP 117/37
[2019-11-25] MEDS: ATORVASTATIN 10 MG TABLET PO SCH (21:12)
[2019-11-25] MEDS: TEMAZEPAM 7.5 MG CAPSULE PO PRN (22:48)
--- NOTE | 2019-11-25 22:53 | NUR ---
GPS RN NOTE: INSOMNIA PT. UNABLE TO SLEEP. ADMINISTERED RESTORIL 7.5 MG PO PRN ORDERED. WILL CONTINUE TO MONITOR FOR SAFETY AND BEHAVIOR
--- NOTE | 2019-11-25 23:26 | NUR ---
GPS RN NOTE: VISTARIL 25MG GIVEN PO FOR ITCHINESS. WILL CONTINUE TO MONITOR
[2019-11-26] MEDS: LORAZEPAM 0.5 MG TABLET PO PRN ×3 (01:53→21:30)
--- NOTE | 2019-11-26 01:54 | NUR ---
GPS RN NOTE: ANXIETY PT. APPEARS ANXIOUS, YELLING AND MAKING NOISE IN HERB CHAIR. ADMINISTERED ATIVAN 0.5 MG PO PRN ORDERED. WILL CONTINUE TO MONITOR.
[2019-11-26 08:00] VITALS: BP 121/57
[2019-11-26] MEDS: FOLIC ACID 1 MG TABLET PO SCH (08:19)
[2019-11-26] MEDS: OLANZAPINE 5 MG TABLET PO SCH ×3 (08:19→16:32)
[2019-11-26] MEDS: CHOLECALCIFEROL 1,000 UNIT TABLET (VIT D3) PO SCH (08:19)
[2019-11-26] MEDS: CEPHALEXIN MONOHYDRATE 500 MG CAPSULE PO SCH ×3 (08:19→16:32)
[2019-11-26] MEDS: CLOTRIMAZOLE 1% 15 GM TUBE TP SCH (08:20)
[2019-11-26] MEDS: Z GUARD REMEDY 2 OZ OINT TP SCH (08:20)
--- NOTE | 2019-11-26 10:16 | NUR ---
GPS RN NOTE: ANXIETY PT. APPEARS ANXIOUS, YELLING , SCREAMING TRYING TO FIGHT THE STAFF . ADMINISTERED ATIVAN 0.5 MG PO PRN ORDERED. WILL CONTINUE TO MONITOR.
--- NOTE | 2019-11-26 10:28 | NUR ---
SNF Contact: Glory ([phone]) from [facility] contacted the SW and stated that the pt was accepted to their facility upon discharge. Glory stated that she needed to speak to the family member about the co-pay.
[2019-11-26 10:42] VITALS: BP 127/72
[2019-11-26] MEDS: DIVALPROEX SODIUM 250 MG TABLET.DR PO SCH (12:59)
[2019-11-26 16:00] VITALS: BP 158/80
--- NOTE | 2019-11-26 17:00 | NUR ---
GPS RN NOTE: PT TRANSFER TO 321 B REPORT GIVEN TO RN
--- NOTE | 2019-11-26 18:00 | NUR ---
GPS OVERFLOW RN NOTES: RECEIVED PATIENT FROM GPS AT 1730, TRANSFERRED PATIENT TO BED. ORIENTED TO ROOM, UNIT AND CALL LIGHT. ALERT AND ORIENTED X1. PATIENT RESTING COMFORTABLY IN BED. HOB ELEVATED. NO SOB. SITTER AT BEDSIDE. REMAINS CALM AT THIS TIME, WATCHING TV. DENIES ANY C/O PAIN NOR DISCOMFORT AT THIS TIME. NO BEHAVIORAL PROBLEMS OBSERVED. BED IN LOWEST POSITION, LOCKED. BED ALARM ON. FREQUENT VISUAL CHECK DONE. IN NO APPARENT DISTRESS.
[2019-11-26 19:46] VITALS: BP 147/71
[2019-11-26 20:00] VITALS: BP 147/71
--- NOTE | 2019-11-26 20:00 | NUR ---
GPS OV RN NOTES RECEIVED ON BED A/O X1,ON 14 DAY HOLD,SITTER AT BEDSIDE,DX PSYCOSIS,WITH EPISODE OF COMBATIVENESS,CALM AT THE MOMENT.WILL CONTINUE TO MONITOR BEHAVIOR.
[2019-11-26] MEDS: ATORVASTATIN 10 MG TABLET PO SCH (21:30)
--- NOTE | 2019-11-26 21:37 | NUR ---
MS RN NOTES APPEARS ANXIOUS,TRYING TO GET OUT OF BED,ATIVAN 0.5MG PO GIVEN WITH APPLE SAUCE.,TAKEN WELL.
[2019-11-26] MEDS: TEMAZEPAM 7.5 MG CAPSULE PO PRN (22:50)
[2019-11-27] MEDS ORDERED: hydrOXYzine PAMOATE 25 MG CAPSULE ONE (01:16)
[2019-11-27] MEDS: hydrOXYzine PAMOATE 25 MG CAPSULE PO PRN ×3 (01:22→21:04)
--- NOTE | 2019-11-27 01:22 | NUR ---
GPS OV RN NOTES C/O ITCHINESS,VISTARIL 25MG PO GIVEN ORDERED.
[2019-11-27] MEDS: ACETAMINOPHEN 325 MG TABLET PO PRN (01:27)
--- NOTE | 2019-11-27 01:27 | NUR ---
GPS LORE ESCOBEDO NOTES C/O RECATL PAIN 04/14 ON PAIN SCALE,TYLENOL 650MG PO GIVEN WITH APPLE SAUCE,TAKEN WELL. Addendum: 11/27/19 at 0617 by IRINA CASAS RN rectal pain
--- NOTE | 2019-11-27 06:17 | NUR ---
GPS RN NOTES CALM, SLEEPING.ITCHINESS IMPROVED.FOLLOW INSTRUCTION AND MED COMPLIANT,SITTER AT BEDSIDE.WILL ENDORSE TO DAY NURSE FOR FURTHER BEHAVIORAL MONITORING.
--- NOTE | 2019-11-27 07:29 | NUR ---
RN NOTES RECEIVED PATIENT IN BED RESTING COMFORTABLY IN MODERATE HIGH BACK REST. A/O X1. SITTER AT BEDSIDE, NO SIGNS OF DISTRESS NOTED AT THIS TIME. NO IV ACCESS. SAFETY MEASURES IN PLACE, BED IN LOWEST LOCKED POSITION WITH SIDE RAILS UP X2. CALL LIGHT WITHIN REACH. WILL CONTINUE TO MONITOR.
[2019-11-27 08:00] VITALS: BP 125/90
[2019-11-27] MEDS: CEPHALEXIN MONOHYDRATE 500 MG CAPSULE PO SCH ×3 (08:04→16:42)
[2019-11-27] MEDS: FOLIC ACID 1 MG TABLET PO SCH (08:04)
[2019-11-27] MEDS: OLANZAPINE 5 MG TABLET PO SCH ×3 (08:04→16:42)
[2019-11-27] MEDS: CHOLECALCIFEROL 1,000 UNIT TABLET (VIT D3) PO SCH (08:04)
[2019-11-27] MEDS: Z GUARD REMEDY 2 OZ OINT TP SCH (08:07)
[2019-11-27] MEDS: CLOTRIMAZOLE 1% 15 GM TUBE TP SCH (09:19)
[2019-11-27] MEDS: LORAZEPAM 0.5 MG TABLET PO PRN (09:42)
[2019-11-27] MEDS: DIVALPROEX SODIUM 250 MG TABLET.DR PO SCH (13:17)
--- NOTE | 2019-11-27 18:35 | NUR ---
RN NOTES PATIENT IN HERB CHAIR SITTING COMFORTABLY IN MODERATE HIGH BACK REST. A/O X1. SITTER AT BEDSIDE, NO IV ACCESS. STILL NOTED WITH AGGRESIVE BEHAVIOR AND PATIENT SPITTING TO NURSES, MADE AWARE, NNO. SAFETY MEASURES IN PLACE, BED IN LOWEST LOCKED POSITION WITH SIDE RAILS UP X2. CALL LIGHT WITHIN REACH. WILL ENDORSE TO GRID MAKER NURSE FOR THIEN.
--- NOTE | 2019-11-27 20:00 | NUR ---
RECEIVED IN ROOM AWAKE SITTING IN HERB CHAIR ,A/O TO HIS NAME ONLY , FLAT AFFECT, ANXIOUS, DISORGANIZED, DISORIENTED,CONFUSED.SPITTING FREQUENLTY NO SIGNS OF ANY DISTRESS NOTED. SKIN STILL WITH RASHES, WARM TO TOUCH. . WILL CONTINUE TO MONITOR Q15 MINS AND Q 1HR FOR SAFETY AND BEHAVIOR. SITTER AT THE BEDSIDE FOR SAFETY AND PT 14 DAY HOLD.
[2019-11-27] MEDS: ATORVASTATIN 10 MG TABLET PO SCH (21:04)
--- NOTE | 2019-11-27 21:05 | NUR ---
environmental health aide notes noticed pt started scratching his skin and getting anxious, vistaril po given and sponges bath rendered with the helped of Theodora Castillo, eucerin cream applied to affected area. snacks also served. will continue monitoring.
--- NOTE | 2019-11-28 | NUR ---
shower maid notes pt sleeping at this time not in any distress noted. kept him warm and comfortable at all times. will continue monitoring. sitter at the bedside.
[2019-11-28] MEDS: TEMAZEPAM 7.5 MG CAPSULE PO PRN ×2 (01:13→23:58)
--- NOTE | 2019-11-28 01:13 | NUR ---
commercial underwriter notes pt woke started screaming on and off. restoril po given to helped the patient back to sleep. no signs of any distress or any discomfort. pt compliant with his medication.
--- NOTE | 2019-11-28 07:02 | NUR ---
GPS KAITARA TARAKA NOTES pt resting at this time after morning care rendered with the helped of sukh . pt still anxious , screaming on and off , disoriented and confused. no signs of any distress noted. Slept only for 5 hrs even sleep medication given . Vestaril helped for itchiness as well as the eucerin cream. alert only to his name. sometimes combative . able to eat by himself by needs precaution for aspiration. kept him warm and comfortable at all times. sitter at the bedside for safety. endorse to am nurse for continuity of care.
--- NOTE | 2019-11-28 07:57 | NUR ---
GPS OV RN OPENING NOTES BEDSIDE ENDORSEMENT DONE. PATIENT IS SLEEPING IN BED BUT ABLE TO BE AWAKENED, RESPONSIVE TO VERBAL AND TACTILE SENSATIONS. A/O X1-2. BREATHING EVEN AND UNLABORED IN ROOM AIR, NO RESPIRATORY DISTRESS NOTED. NO IV LINE. SITTER CURRENTLY AT BEDSIDE. SAFETY PRECAUTION IN PLACE: BED LOCKED AND ON LOWEST POSITION, SIDERAILS UP X2, CALL LIGHT W/IN REACH. WILL CONTINUE TO MONITOR.
[2019-11-28] MEDS: CEPHALEXIN MONOHYDRATE 500 MG CAPSULE PO SCH ×2 (09:41→12:48)
[2019-11-28] MEDS: FOLIC ACID 1 MG TABLET PO SCH (09:42)
[2019-11-28] MEDS: CHOLECALCIFEROL 1,000 UNIT TABLET (VIT D3) PO SCH (09:42)
[2019-11-28] MEDS: OLANZAPINE 5 MG TABLET PO SCH ×3 (09:44→16:35)
[2019-11-28] MEDS: Z GUARD REMEDY 2 OZ OINT TP SCH (09:44)
[2019-11-28] MEDS: CLOTRIMAZOLE 1% 15 GM TUBE TP SCH (09:45)
[2019-11-28] MEDS: DIVALPROEX SODIUM 250 MG TABLET.DR PO SCH (12:48)
--- NOTE | 2019-11-28 13:17 | NUR ---
Family Contact: SW called pt's son, Siva ([phone]), and left a voicemail that stated that the SW is recommending that the individual helping with his dad's insurance call [facility] so that they can work on accepting him to their building.
--- NOTE | 2019-11-28 18:03 | NUR ---
RN NOTES PATIENT TRANSFERRED BACK TO GPS UNIT ROOM 220-2. REPORT GIVEN TO GREGG SOSA. BELONGINGS GIVEN TO NURSE.
[2019-11-28 20:03] VITALS: BP 141/61
[2019-11-28] MEDS: LORAZEPAM 0.5 MG TABLET PO PRN (21:08)
[2019-11-28] MEDS: ATORVASTATIN 10 MG TABLET PO SCH (21:08)
--- NOTE | 2019-11-28 21:17 | NUR ---
GPS/RN PATIENT IS AGITATED, HYPERVERBAL, ATIVAN 0.5 MG PO WAS GIVEN ORDERED, WILL MONITOR.
--- NOTE | 2019-11-28 22:20 | NUR ---
GPS/RN PATIENT IS MORE CALM AT THIS TIME, NO SIGNS OF DISTRESS NOTED, STILL IN THE ACTIVITY ROOM SITTING ON HERB CHAIR. WILL CONTINUE TO MONITOR.
--- NOTE | 2019-11-29 00:03 | NUR ---
GPS/RN PATIENT IS STILL AWAKE AT THIS TIME, RESTLESS AND AGITATED, RESTORIL ORDERED WAS GIVEN. WILL CONTINUE TO MONITOR.
[2019-11-29] MEDS: LORAZEPAM 0.5 MG TABLET PO PRN ×3 (02:53→22:04)
--- NOTE | 2019-11-29 03:01 | NUR ---
GPS/RN PATIENT IS VERY AGITATED AT THIS TIME, ATIVAN 0.5 MG PO WAS GIVEN ORDERED. WILL CONTINUE TO MONITOR.
[2019-11-29 08:00] VITALS: BP 137/76
[2019-11-29] MEDS: OLANZAPINE 5 MG TABLET PO SCH ×3 (08:53→17:14)
[2019-11-29] MEDS: CHOLECALCIFEROL 1,000 UNIT TABLET (VIT D3) PO SCH (08:53)
[2019-11-29] MEDS: FOLIC ACID 1 MG TABLET PO SCH (08:53)
[2019-11-29] MEDS: CLOTRIMAZOLE 1% 15 GM TUBE TP SCH (08:55)
[2019-11-29] MEDS: Z GUARD REMEDY 2 OZ OINT TP SCH (08:55)
--- NOTE | 2019-11-29 09:41 | NUR ---
RN NOTES ADMINISTERED ATIVAN 0.5 MG PO PRN FOR ANXIETY, PARANOIA. V/S TAKEN BP- 137/76, P-82, CONTINUED MONITORING.
[2019-11-29] MEDS: DIVALPROEX SODIUM 125 MG CAP.SPRINK PO SCH (13:00)
[2019-11-29] MEDS ORDERED: DIVALPROEX SODIUM 125 MG CAP.SPRINK PO SCH (13:00)
[2019-11-29 16:00] VITALS: BP 125/71
[2019-11-29] MEDS: ACETAMINOPHEN 325 MG TABLET PO PRN ×2 (17:14→23:40)
--- NOTE | 2019-11-29 17:19 | NUR ---
rn notes administered tylenol 650 mg po prn for lower abdominal pain 06/14, per patient request.
[2019-11-29 21:07] VITALS: BP 131/83
[2019-11-29] MEDS: ATORVASTATIN 10 MG TABLET PO SCH (22:04)
--- NOTE | 2019-11-29 22:05 | NUR ---
GPS RN NOTE: PT AGITATED, RESTLESS, ANXIOUS, YELLING, REFUSING REDIRECTION. ATIVAN 0.5MG 1 TAB GIVEN PO/CRUSHED. WILL CONTINUE TO MONITOR.
[2019-11-29] MEDS: TEMAZEPAM 7.5 MG CAPSULE PO PRN (23:40)
--- NOTE | 2019-11-30 06:42 | NUR ---
GPS RN CLOSING NOTES: PT LAYING ON BED SLEEPING. SLEPT 3HR THIS SHIFT. NO S/S OF DISTRESS. RESPIRATION EVEN AND UNLABORED WITH EQUAL RISE AND FALL OF THE CHEST ON ROOM AIR. ALL PT CARE NEEDS MET ANTICIPATED. BED IS LOCKED AND IN LOWEST POSITION. WILL CONTINUE TO MONITOR AND ENDORSE TO AM SHIFT.
[2019-11-30 08:00] VITALS: BP 140/64
[2019-11-30] MEDS: OLANZAPINE 5 MG TABLET PO SCH ×3 (08:40→16:32)
[2019-11-30] MEDS: CHOLECALCIFEROL 1,000 UNIT TABLET (VIT D3) PO SCH (08:40)
[2019-11-30] MEDS: FOLIC ACID 1 MG TABLET PO SCH (08:40)
[2019-11-30] MEDS: Z GUARD REMEDY 2 OZ OINT TP SCH (08:42)
[2019-11-30] MEDS: CLOTRIMAZOLE 1% 15 GM TUBE TP SCH (08:43)
[2019-11-30] MEDS: DIVALPROEX SODIUM 125 MG CAP.SPRINK PO SCH (12:03)
[2019-11-30 16:00] VITALS: BP 130/94
[2019-11-30] MEDS: LORAZEPAM 0.5 MG TABLET PO PRN (19:33)
--- NOTE | 2019-11-30 19:34 | NUR ---
GPS RN NOTE> PT AGITATED, RESTLESS, YELLING AND REFUSING REDIRECTION. ATIVAN 0.5MG 1TAB GIVEN PO/CRUSHED PRN ORDERED. WILL CONTINUE TO MONITOR.
[2019-11-30 20:30] VITALS: BP 129/69
[2019-11-30] MEDS: ACETAMINOPHEN 325 MG TABLET PO PRN (20:55)
[2019-11-30] MEDS: hydrOXYzine PAMOATE 25 MG CAPSULE PO PRN (20:56)
[2019-11-30] MEDS: ATORVASTATIN 10 MG TABLET PO SCH (21:53)
[2019-11-30] MEDS: TEMAZEPAM 7.5 MG CAPSULE PO PRN (21:53)
[2019-12-01] MEDS: hydrOXYzine PAMOATE 25 MG CAPSULE PO PRN ×2 (04:50→16:50)
--- NOTE | 2019-12-01 06:19 | NUR ---
GPS RN CLOSING NOTES: PT AWAKE SITTING IN HERB CHAIR IN DAY ROOM. WEEKLY SKIN ASSESSMENT DONE, PICTURES TAKEN PLACED IN PATIENT CHART. SLEPT 5HR THIS SHIFT. NO S/S OF DISTRESS. RESPIRATION EVEN AND UNLABORED WITH EQUAL RISE AND FALL OF THE CHEST ON ROOM AIR. ALL PT CARE NEEDS MET ANTICIPATED. BED IS LOCKED AND IN LOWEST POSITION. WILL CONTINUE TO MONITOR AND ENDORSE TO AM SHIFT.
[2019-12-01 08:00] VITALS: BP 157/72
[2019-12-01] MEDS: OLANZAPINE 5 MG TABLET PO SCH ×3 (08:35→16:24)
[2019-12-01] MEDS: FOLIC ACID 1 MG TABLET PO SCH (08:35)
[2019-12-01] MEDS: CHOLECALCIFEROL 1,000 UNIT TABLET (VIT D3) PO SCH (08:35)
[2019-12-01] MEDS: Z GUARD REMEDY 2 OZ OINT TP SCH (08:37)
[2019-12-01] MEDS: CLOTRIMAZOLE 1% 15 GM TUBE TP SCH (08:37)
[2019-12-01] MEDS: DIVALPROEX SODIUM 125 MG CAP.SPRINK PO SCH ×2 (09:44→16:24)
[2019-12-01] MEDS: LORAZEPAM 0.5 MG TABLET PO PRN ×2 (11:34→23:48)
[2019-12-01 16:00] VITALS: BP 126/95
[2019-12-01 20:08] VITALS: BP 151/75
[2019-12-01] MEDS: ATORVASTATIN 10 MG TABLET PO SCH (21:15)
[2019-12-01] MEDS: TEMAZEPAM 7.5 MG CAPSULE PO PRN (21:16)
--- NOTE | 2019-12-02 07:26 | NUR ---
GPS RN NOTE PATIENT IN HERB CHAIR, RESTING COMFORTABLY. PATIENT IN NO ACUTE DISTRESS. NO SOB NOTED. PATIENT BREATHING IS EVEN AND UNLABORED. SAFETY PRECAUTIONS IN PLACE. WILL CONTINUE TO MONITOR.
[2019-12-02 08:00] VITALS: BP 114/58
[2019-12-02] MEDS: Z GUARD REMEDY 2 OZ OINT TP SCH (08:59)
[2019-12-02] MEDS: DIVALPROEX SODIUM 125 MG CAP.SPRINK PO SCH ×2 (08:59→16:58)
[2019-12-02] MEDS: FOLIC ACID 1 MG TABLET PO SCH (08:59)
[2019-12-02] MEDS: OLANZAPINE 5 MG TABLET PO SCH ×3 (08:59→16:58)
[2019-12-02] MEDS: CHOLECALCIFEROL 1,000 UNIT TABLET (VIT D3) PO SCH (08:59)
[2019-12-02] MEDS: CLOTRIMAZOLE 1% 15 GM TUBE TP SCH (08:59)
--- NOTE | 2019-12-02 13:15 | NUR ---
JACINTO Family Contact: SW called pt's son, Siva ([phone]), to discuss nursing facility options. Per son, he is agreeable with [facility].
[2019-12-02 16:00] VITALS: BP 147/74
--- NOTE | 2019-12-02 18:22 | NUR ---
GPS RN NOTE PATIENT IN HERB CHAIR RESTING COMFORTABLY. PATIENT IN NO ACUTE DISTRESS. NO SOB NOTED. PATIENT BREATHING IS EVEN AND UNLABORED. SAFETY PRECAUTIONS IN PLACE. EXPLAINED ALL DUE MEDS. PATIENT KEPT CLEAN, DRY, AND COMFORTABLE THROUGHOUT SHIFT. WILL ENDORSE CARE TO PM SHIFT FOR THIEN.
[2019-12-02 20:19] VITALS: BP 162/76
[2019-12-02] MEDS: ATORVASTATIN 10 MG TABLET PO SCH (21:19)
[2019-12-02] MEDS: TEMAZEPAM 7.5 MG CAPSULE PO PRN (22:36)
--- NOTE | 2019-12-02 22:39 | NUR ---
GPS RN NOTE: INSOMNIA PT. UNABLE TO SLEEP. ADMINISTERED RESTORIL 7.5 MG PO PRN ORDERED. WILL CONTINUE TO MONITOR.
[2019-12-03 08:00] VITALS: BP 116/63
--- NOTE | 2019-12-03 08:19 | NUR ---
JACINTO Discharge Note: Patient will be discharged to custodial facility, [facility] [address] [place] [address] ([phone]) via ambulance transportation at 12pm. JACINTO spoke with Jeovanny at the facility who states they are ready to accept the patient today. Pts son Siva ([phone]) is aware and agreeable. Patient is alert and oriented x3-4, and is unable to plan for self-care, however, patient is willing to accept care provided at the facility. Patient denies suicidal or homicidal ideation. Patient is aware and agreeable with discharge plans. Patient will continue to follow-up with his Psychiatrist Dr. Moe and Sandblaster Stone Dr. Stiles at [facility]. Patient presented with euthymic mood and congruent affect.
[2019-12-03] MEDS: CHOLECALCIFEROL 1,000 UNIT TABLET (VIT D3) PO SCH (09:07)
[2019-12-03] MEDS: DIVALPROEX SODIUM 125 MG CAP.SPRINK PO SCH (09:07)
[2019-12-03] MEDS: FOLIC ACID 1 MG TABLET PO SCH (09:07)
[2019-12-03] MEDS: OLANZAPINE 5 MG TABLET PO SCH (09:07)
[2019-12-03] MEDS: Z GUARD REMEDY 2 OZ OINT TP SCH (09:10)
[2019-12-03] MEDS: CLOTRIMAZOLE 1% 15 GM TUBE TP SCH (09:11)
--- NOTE | 2019-12-03 09:56 | NUR ---
GPS/RN-NOTES RECEIVED T.O DISCHARGE ORDER FROM DR. SOLER ,WILL CONT. ALL MEDICATIONS INCLUDING PRN'S.NOTED AND CARRIED OUT.
--- NOTE | 2019-12-03 12:40 | NUR ---
GPS/RN-DISCHARGE NOTES RECEIVED T.O DISCHARGE ORDER FROM DR. SOLER. PATIENT WAS DISCHARGE TO [facility]. DR. COPPOLA SEEN THE PATIENT WITH ORDERS. PATIENT IS ALERT TO NAME ONLY. PATIENT DID NOT VERBALIZE SI/HI,DENIES VISUAL AUDITORY HALLUCINATIONS UPON DISCHARGE. REPORT WA GIVEN TO KASANDRA ( RUBBER STAMP DIE INSPECTOR). OFFERED FLU VACCINE TO THE PATIENT BUT PATIENT REFUSED, ALSO REFUSED FULL BODY PICTURES DESPITE FEW ATTEMPTS. PATIENT SON RYAN PARK [phone] WAS MADE AWARE OF THE DISCHARGE.PATIENT WAS TURNER MACHINE BY AMBULANCE VIA GURNEY WITH TWO STAFF ASSIST. PATIENT LEFT THE UNIT IN STABLE CONDITION WITH ALL BELONGINGS INCLUDING OWN WALKER AND X1 BLACK WATCH. MASK WAS GIVEN TO THE PATIENT.
== END 2019-12-03 12:40 | DRG 885 ==
LOC: ER 21:47 → GPS 11-22 02:47 → GPSOV 11-26 17:27 → GPS 11-28 17:52
PROVIDERS: ADMIT Psychiatry & Neurology Psychiatry; ATTEND Student in an Organized Health Care Education/Training Program
DX: F25.0 Schizoaffective disorder, bipolar type (principal); F01.50 Vascular dementia, unspecified severity, without behavioral disturbance, psychotic disturbance, mood disturbance, and anxiety; I11.0 Hypertensive heart disease with heart failure; G93.41 Metabolic encephalopathy; F29 Unspecified psychosis not due to a substance or known physiological condition; F41.9 Anxiety disorder, unspecified; B35.3 Tinea pedis; I50.9 Heart failure, unspecified; J44.9 Chronic obstructive pulmonary disease, unspecified; M19.90 Unspecified osteoarthritis, unspecified site; Z96.649 Presence of unspecified artificial hip joint; Z79.899 Other long term (current) drug therapy; G30.9 Alzheimer's disease, unspecified; F02.80 Dementia in other diseases classified elsewhere, unspecified severity, without behavioral disturbance, psychotic disturbance, mood disturbance, and anxiety; E78.5 Hyperlipidemia, unspecified; Z87.440 Personal history of urinary (tract) infections
CPT/HCPCS: 36415; 80048-TC; 80061-TC; 80076-TC; 81000-TC; 84443-TC; 85025-TC; 87081-TC; 87086-TC; 97116-TC; 97530-TC; C9803; G0480; J1200; J3490; Q0177